=== PATIENT | male | born 1930 | race African-American/Black ===

== ENCOUNTER 2018-08-20 08:59 | Inpatient (IN) | payer MEDICARE, MEDICAID ==
[2018-08-20 09:43] LABS: #Eosinphils 0.1 thou/uL (0.0-0.7); #Lymphocytes 1.3 thou/uL (1.20-3.40); #Monocytes 0.8 thou/uL (0.11-0.59); #Neutrophils 7.4 thou/uL (1.40-6.50); %Basophils 0.3 % (0.0-1.0); %Eosinophils 0.8 % (0.0-10.0); %Lymphocytes 13.4 % (21.0-51.0); %Monocytes 8.2 % (0.0-10.0); %Neutrophils 77.3 % (42.0-75.0); Hemoglobin 9.8 g/dL (14.0-18.0); Mean Corpuscular HGB CONC 33.4 g/dL (32.0-36.0); Mean Corpuscular Hemoglobin 28.6 pg (27.0-31.0); Mean Corpuscular Volume 85.5 fL (78.0-98.0); Mean Platelet Volume 7.4 fL (7.4-10.4); Platelet Count 284 thou/uL (130-400); RBC Distribution Width 13.6 % (11.5-14.5); Red Blood Cell (RBC) Count 3.43 mill/uL (4.70-6.10); White Blood Cell (WBC) Count 9.6 thou/uL (4.8-10.8)
[2018-08-20] MEDS ORDERED: Aspirin Chewable 81 MG TAB ONE (09:45)
[2018-08-20] MEDS ORDERED: Furosemide 100 MG/10 ML VIAL ONE (09:48)
[2018-08-20 09:51] LABS: INR-International Normal Ratio 1.1; PTT 37.3 SEC (22.9-36.1); Prothrombin Time 14.5 SEC (12.0-14.7)
[2018-08-20 10:04] LABS: ALT (SGPT) 12 U/L (8-55); AST (SGOT) 25 U/L (5-34); Albumin 3.9 g/dL (3.4-4.8); Alkaline Phosphatase 146 U/L (40-150); Anion Gap 15 mmol/L (10-20); BUN (Urea Nitrogen) 12 mg/dL (8.4-25.7); Bilirubin, Total 1.1 mg/dL (0.2-1.2); Calc. Creatinine Clearance 0 mL/min (70-130); Calcium 8.2 mg/dL (7.8-10.44); Carbon Dioxide 26 mmol/L (23-31); Chloride 95 mmol/L (98-107); Estimated GFR-MDRD 63; Globulin 5.2 g/dL (2.4-3.5); Glucose 163 mg/dL (83-110); Potassium 3.9 mmol/L (3.5-5.1); Protein, Total 9.1 g/dL (5.8-8.1); Sodium 132 mmol/L (136-145)
--- NOTE | 2018-08-20 10:28 | RAD ---
PORTABLE CHEST: DATE: 08/20/18 HISTORY: Extremity swelling. History of congestive heart failure. COMPARISON: 06/08/16. FINDINGS: Heart size is enlarged. Atherosclerotic changes of aorta. Chronic appearing lung changes seen. No ove rt failure. IMPRESSION: Cardiomegaly. No signs of overt failure. POS: OFF
--- NOTE | 2018-08-20 12:31 | ULT ---
VENOUS DUPLEX SONOGRAM RIGHT UPPER EXTREMITY: Date: 08/20/18 HISTORY: Right arm pain and edema. FINDINGS: FINDINGS: The right internal jugular vein and subclavian vein, axillary, brachial, cephalic, and basilic veins were evaluated. Good color and spectral Doppler flow. No thrombus visualized. IMPRESSION: No sonographic evidence of deep venous thrombosis within the right upper extremity. POS: CET
[2018-08-20 13:55] LABS: Troponin I Less than 0.010 ng/mL (< 0.028)
[2018-08-20 14:00] VITALS: BMI 36.1
[2018-08-20] MEDS ORDERED: Senokot S 8.6-50 MG TAB PO PRN (14:56)
[2018-08-20] MEDS ORDERED: Bisacodyl 10 MG SUPP PR PRN (14:56)
[2018-08-20] MEDS ORDERED: Cepastat Lozenges 1 LOZ PO PRN (14:56)
[2018-08-20] MEDS ORDERED: Ondansetron PF 4 MG/2 ML Vial IVP PRN (14:56)
[2018-08-20] MEDS ORDERED: Sodium Chloride 0.65% Nasal 44 ML BOT EA NARE PRN (14:56)
[2018-08-20] MEDS ORDERED: Calcium Carbonate 500 MG ChewTAB PO PRN (14:56)
[2018-08-20] MEDS ORDERED: Ondansetron ODT 4 MG TAB PO PRN (14:56)
[2018-08-20] MEDS ORDERED: Dextrose 5% in Water 1,000 ML IV PRN (14:56)
[2018-08-20] MEDS ORDERED: HYDROcodone/Acetaminophen 5/325 mg Tablet PO PRN (14:56)
[2018-08-20] MEDS ORDERED: PROVENTIL INHALER 6.7 G (200 INHALATIONS) INH PRN (14:56)
[2018-08-20] MEDS ORDERED: Loperamide HCl 2 MG CAP PO PRN (14:56)
[2018-08-20] MEDS ORDERED: Dextrose 50% Abboject 50 ML SYRINGE SLOW IVP PRN (14:56)
[2018-08-20] MEDS ORDERED: Loratadine 10 MG TAB PO PRN (14:56)
[2018-08-20] MEDS ORDERED: hydrALAZINE 20 MG/ML VIAL SLOW IVP PRN (14:56)
[2018-08-20] MEDS ORDERED: Diabetic Tussin 200 MG/10 ML UDCUP PO PRN (14:56)
[2018-08-20] MEDS ORDERED: Artificial Tears 18 DROP/0.9 ML EA EYE PRN (14:56)
[2018-08-20] MEDS ORDERED: Acetaminophen 325 MG TAB PO PRN (14:56)
[2018-08-20] MEDS ORDERED: Bisacodyl 5 MG TAB PO PRN (14:56)
[2018-08-20] MEDS ORDERED: HumaLOG 300 UNITS/3 ML VIAL SC PRN ×2 (14:56)
--- NOTE | 2018-08-20 16:01 | HP ---
PRIMARY CARE PHYSICIAN: Dr. Jean Garcia. REASON FOR ADMISSION: Right upper extremity swelling, new onset atrial fibrillation. HISTORY OF PRESENT ILLNESS: An 88-year-old male, who has underlying history of diabetes, hypertension, and COPD, who presented to the emergency room with complaint of right upper extremity swelling and pain. The patient also has bilateral lower extremity pitting edema and he has shortness of breath. He was mainly concerned about his right upper extremity swelling, especially in right hand pain. He denies any chest pain, palpitation, dizziness, or syncope. He denies any constipation, diarrhea, melena, or hematochezia. The patient is not aware of any atrial fibrillation diagnosis even the patient is not aware of congestive heart failure history, but the patient is taking Lasix and he has bilateral lower extremity edema. At this point, the patient's family members are not present at bedside, unable to get more detailed history. As per emergency room physician, the patient did not report to them he had chest pain, palpitation, or previous history of stroke. He does not have any fever, chills, or UTI symptoms. Today, in the emergency room, he was hemodynamically stable, but EKG showed a new onset atrial fibrillation with controlled rate. His chest x-ray showed cardiomegaly without any CHF. His BNP was only slightly elevated. His right upper extremity ultrasound was negative for any DVT. His routine blood test showed chronic normocytic anemia and chronic kidney disease stage 3. In the emergency room, the patient has received Lasix and aspirin and subsequently, he was admitted to telemetry floor for observation. REVIEW OF SYSTEMS: CONSTITUTIONAL: Negative for weight loss or gain, ability to conduct usual activities. SKIN: Negative for rash, itching. EYES: Negative for double vision, pain. ENT/MOUTH: Negative for nose bleeding, neck stiffness, pain, tenderness. CARDIOVASCULAR: Negative for palpitations, dyspnea on exertion, orthopnea. RESPIRATORY: Negative for shortness of breath, wheezing, cough, hemoptysis, fever or night sweats. GASTROINTESTINAL: Negative for poor appetite, abdominal pain, heartburn, nausea, vomiting, constipation, or diarrhea. GENITOURINARY: Negative for urgency, frequency, dysuria, nocturia. MUSCULOSKELETAL: Negative for pain, swelling. NEUROLOGIC/PSYCHIATRIC: Negative for anxiety, depression. ALLERGY/IMMUNOLOGIC: Negative for skin rash, bleeding tendency. Please see my HPI for pertinent positives and negatives. All other review of systems reviewed and negative except as mentioned in HPI. PAST MEDICAL HISTORY: Morbid obesity, hypertension, diabetes type 2, likely chronic diastolic heart failure, dyslipidemia, gout. PAST SURGICAL HISTORY: Reviewed and negative. PAST PSYCHIATRIC HISTORY: Reviewed and negative. SOCIAL HISTORY: The patient is living at home with family. History of smoking. He quit smoking about 48 years ago. He denies any alcohol abuse. He denies any other illicit drug abuse. FAMILY HISTORY: No family history of coronary artery disease, stroke, or cancer. ALLERGIES: NO KNOWN DRUG ALLERGIES. CURRENT HOME MEDICATIONS: 1. Amlodipine 10 mg daily. 2. Zocor 20 mg p.o. at bedtime. 3. Allopurinol 100 mg daily. 4. Metformin 1000 mg p.o. b.i.d. 5. ProAir HFA 2 puffs q.6 hourly p.r.n. 6. Losartan 25 mg twice daily. 7. Potassium chloride 10 mEq daily. 8. Lasix 40 mg p.o. daily. 9. Spiriva 18 mcg inhalation daily. EMERGENCY ROOM COURSE: The patient has received Lasix 40 mg and aspirin 325 mg. PHYSICAL EXAMINATION: VITAL SIGNS: Currently, blood pressure 154/99, pulse 88 and irregular, respiratory rate 22, temperature 98.3, saturation 90% on room air, weight 122.9 kg. GENERAL: The patient is currently alert and awake. No obvious acute distress. HEENT: Head; normocephalic, atraumatic. Eyes; pupils round, reactive to light. Extraocular muscle intact. ENT; oropharynx within normal limits. Moist mucous membrane. Poor dentition. No oral lesion. No pharyngeal erythema. No exudate. NECK: Supple. No JVD. No thyromegaly. No carotid bruit. LUNGS: Bilateral few end-expiratory wheezing heard. No rales. Air entry reduced. CARDIAC: S1 and S2, irregular. No murmur elicited. No gallop. No rub. ABDOMEN: Obesity present. Bowel sounds present. Nontender. Nondistended. No organomegaly. No mass. No suprapubic tenderness. BACK: Unremarkable. No CVA tenderness. EXTREMITIES: Upper extremity; right hand swollen, mildly tender without any erythema or warmth. Pulsation intact in both upper extremities. Left upper extremity within normal limits. Lower extremity, bilateral +3 pitting edema noted. Good distal pulsation. SKIN: No skin or rash. HEMATOLOGIC: No lymphadenopathy. PSYCHIATRIC: Normal affect. NEUROLOGIC: Nonfocal examination. SIGNIFICANT LABORATORY DATA: EKG showing atrial fibrillation with controlled ventricular response, incomplete bundle branch block, left anterior fascicular block. Chest x-ray showing cardiomegaly without any pulmonary vascular congestion. CBC; WBC 9.6, hemoglobin 9.8, platelet 284. INR 1.1. BMP; sodium 132, potassium 3.9, chloride 95, carbon dioxide 26, BUN 12, creatinine 1.31, anion gap 15, glucose 163, uric acid 6.9, calcium 8.2. LFT; AST 25, ALT 12, alkaline phosphatase 146, albumin 3.9. Troponin I 0.020 and 0.010. BNP 105.5. TSH 2.72. Ultrasound of the right upper extremity negative for any DVT. ASSESSMENT AND PLAN: 1. New onset atrial fibrillation, rate controlled. At this point, seems like the patient has new onset atrial fibrillation based on history. The patient has several risk factors for stroke including his age, congestive heart failure, diabetes, and hypertension. He is at high risk for future stroke. At this point, the patient will need chronic anticoagulation. We will start Eliquis 5 mg p.o. b.i.d. We will consult Cardiology. We will obtain echocardiography. At this point, the patient's rate is under control. We will put Cardizem CD 120 mg p.o. daily. Further treatment decision will defer to Cardiology. 2. Acute on chronic diastolic congestive heart failure. This patient has elevated BNP, bilateral lower extremity edema, and mild hypoxia. At this point, the patient will need diuretic therapy. We will start with Lasix 40 mg IV b.i.d., fluid restriction 1500 mL per day. We will monitor renal function and replace electrolytes accordingly. We will obtain echocardiography. 3. Chronic obstructive pulmonary disease with possible mild flare-up. We will continue with DuoNeb q.6 hourly p.r.n., Spiriva 18 mcg inhalation daily. 4. Anemia, normocytic normochromic. We will continue with ferrous sulfate 325 mg p.o. daily. 5. Chronic kidney disease stage 3. We will monitor renal function. 6. Diabetes type 2. We will continue with metformin 1000 mg twice daily. Diabetic diet will be given. 7. Dyslipidemia, on Lipitor. We will continue Zocor 20 mg p.o. at bedtime. 8. Gout. We will continue allopurinol 100 mg p.o. daily. 9. Isolated right upper extremity swelling, suspecting a gout. We will check CRP and we will continue with colchicine 0.6 mg p.o. b.i.d. 10. Obesity with BMI 36. Dietary education given. Weight loss education given. 11. Hypertension. We will discontinue amlodipine and will continue losartan 25 mg p.o. b.i.d. 12. DVT prophylaxis. The patient is already kept on Eliquis therapy. 13. GI prophylaxis. Pepcid 20 mg p.o. b.i.d. CODE STATUS: The patient is full code. The patient's daughter is surrogate decision maker. DISPOSITION PLAN: Based on clinical course and Cardiology recommendation, the plan of care discussed with the patient in detail. We will repeat labs tomorrow. Job ID: [id number]
[2018-08-20 16:07] LABS: Troponin I 0.015 ng/mL (< 0.028)
[2018-08-20] MEDS ORDERED: Albuterol Sulfate 2.5 mg/3 ml Neb NEB PRN (17:19)
[2018-08-20 17:46] LABS: Bilirubin Negative (Negative); Blood, Urine Trace (Negative); Clarity CLEAR (Clear); Glucose, Urine (Dipstick) Negative (Negative); Leukocyte Trace (Negative); Nitrite Negative (Negative); Protein, Urine (Dipstick) Trace mg/dL (Neg-Trace); Specific Gravity, Urine 1.007 (1.002-1.036); pH, Urine 7.5 (5.0-9.0)
[2018-08-20 17:50] LABS: Bacteria/HPF None Seen HPF (None Seen); Hyaline Casts/LPF 0-3 HYALINE CAST LPF (0-3 Hyaline); RBC/HPF 0-3 HPF (0-3); Squamous Epithelial 0-3 HPF (0-3); WBC/HPF 0-3 HPF (0-3)
[2018-08-20] MEDS: metFORMIN 500 MG TAB PO SCH (18:09)
[2018-08-20] MEDS: Ipratropium Bromide 2.5 ml Neb NEB SCH (19:02)
--- NOTE | 2018-08-20 20:29 | CON ---
DATE OF CONSULTATION: 08/20/2018 REASON FOR CONSULTATION: Arrhythmia. HISTORY OF PRESENT ILLNESS: Mr. Murray is a pleasant 88-year-old gentleman, who comes to the hospital for right arm pain. He noticed right arm pain and swelling developed to the point where he thought he needed help with this. He came into the ER and was evaluated. Initially, he was found to have an irregular rhythm that was thought to be atrial fibrillation, so he was admitted for atrial fibrillation with RVR. He had a venous ultrasound of the right arm that showed no evidence of deep venous thrombosis in the right upper extremity. He has a lot of pain in the arm. He cannot move it that much. It is swollen and it is very painful to touch as well. It is warm to touch as well. He denies any chest pain, tightness, or pressure. No shortness of breath. He has never been told he has any rhythm problems. PAST MEDICAL HISTORY: 1. Type 2 diabetes. 2. Hypertension. 3. History of diastolic heart failure. 4. Hyperlipidemia. 5. Gout. 6. Morbid obesity. PAST SURGICAL HISTORY: None. SOCIAL HISTORY: Quit smoking 48 years ago. No alcohol. No drug use. FAMILY HISTORY: No early coronary artery disease. OUTPATIENT MEDICATIONS: 1. Amlodipine 10 mg a day. 2. Zocor 20 mg a day. 3. Allopurinol. 4. Metformin 1000 mg b.i.d. 5. ProAir. 6. Losartan 25 mg twice a day. 7. Potassium chloride 10 mEq a day. 8. Lasix 40 mg a day. 9. Spiriva 18 mcg a day. ALLERGIES: NO KNOWN DRUG ALLERGIES. REVIEW OF SYSTEMS: A 12-point review of systems was done and was all negative unless stated in the history of present illness. PHYSICAL EXAMINATION: VITAL SIGNS: Temperature 97.3, pulse 78, respiratory rate 20, saturating 92% on room air, blood pressure 139/82. GENERAL: Awake, alert, and oriented x3. No distress. HEENT: Normocephalic, atraumatic. NECK: Supple. LUNGS: Clear. CARDIOVASCULAR: Irregularly irregular. Heart rate in the 80s. There is a grade 2/6 systolic murmur at the right upper sternal border. ABDOMEN: Soft. EXTREMITIES: No edema in the legs. Right arm is edematous, swollen, painful, and warm to palpation. LABORATORY DATA: Laboratory work was reviewed. CBC with a white count of 9, hemoglobin 9.8, hematocrit 29, platelet count 284. Coags; INR 1.1. Chemistry with a sodium of 132, potassium is 3.9, chloride of 95, carbon dioxide of 26, anion gap of 15, BUN of 12, creatinine 1.31, GFR of 63, glucose of 163. Troponin negative x2. BNP is 105. Albumin of 3.9. TSH was normal. UA with trace blood and trace leukocyte esterase. EKG was reviewed. The EKG called it atrial fibrillation, however, he is not in atrial fibrillation. It looks like he is in multifocal atrial tachycardia or he is in sinus rhythm with small runs of atrial tachycardia. ASSESSMENT: 1. Multifocal atrial tachycardia versus small runs of atrial tachycardia, nonsustained. 2. Right upper extremity swelling. Concern for a gouty attack. He does not have a deep venous thrombosis and if he would have thrown thrombus to his arm, he would have no pulses and he does have good pulses. PLAN: 1. We will do an echocardiogram. 2. Repeat EKG tonight and one in the morning. 3. No need for full anticoagulation at this time given that this is not atrial fibrillation. 4. We will get an EP consultation. 5. Would focus on his right upper extremity pain. Job ID: [id number]
[2018-08-20] MEDS ORDERED: Prevnar 13-Val Conj/PF 0.5 ML SYRINGE IM ONE (20:30)
[2018-08-20] MEDS ORDERED: Apixaban 2.5 MG TAB PO SCH (21:00)
[2018-08-20] MEDS ORDERED: Apixaban 5 MG TAB PO SCH (21:00)
[2018-08-20] MEDS: Losartan 25 MG TAB PO SCH (21:46)
[2018-08-20] MEDS: Famotidine 20 MG TAB PO SCH (21:47)
[2018-08-20] MEDS: Atorvastatin Calcium 10 MG TAB PO SCH (21:47)
[2018-08-20] MEDS: Colchicine 0.6 MG TAB PO SCH (22:02)
[2018-08-21] MEDS: Ipratropium Bromide 2.5 ml Neb NEB SCH ×4 (00:41→19:30)
[2018-08-21 07:17] LABS: Anion Gap 17 mmol/L (10-20); BUN (Urea Nitrogen) 16 mg/dL (8.4-25.7); Calc. Creatinine Clearance 56 mL/min (70-130); Calcium 8.6 mg/dL (7.8-10.44); Carbon Dioxide 26 mmol/L (23-31); Chloride 95 mmol/L (98-107); Estimated GFR-MDRD 49; Glucose 181 mg/dL (83-110); Potassium 3.7 mmol/L (3.5-5.1); Sodium 134 mmol/L (136-145)
[2018-08-21 07:28] LABS: Hemoglobin 10.8 g/dL (14.0-18.0); MDiff Complete? YES; Mean Corpuscular HGB CONC 33.3 g/dL (32.0-36.0); Mean Corpuscular Hemoglobin 28.5 pg (27.0-31.0); Mean Corpuscular Volume 85.5 fL (78.0-98.0); Mean Platelet Volume 7.1 fL (7.4-10.4); Platelet Count 316 thou/uL (130-400); RBC Distribution Width 13.5 % (11.5-14.5); Red Blood Cell (RBC) Count 3.79 mill/uL (4.70-6.10); White Blood Cell (WBC) Count 12.3 thou/uL (4.8-10.8)
[2018-08-21 07:29] LABS: Lymphocytes 11 % (21-51); Monocytes 6 % (0-10); Neutrophil 83 % (42-75); Polychromasia SLIGHT = 2-3 cells (100X) (0-2/hpf)
[2018-08-21] MEDS ORDERED: Amlodipine 10 MG TAB PO SCH (09:00)
[2018-08-21] MEDS ORDERED: Furosemide 40 MG TAB PO SCH (09:00)
[2018-08-21] MEDS ORDERED: Spiriva 18 MCG CAP (Box of 5 Caps) INH SCH ×2 (09:00)
[2018-08-21] MEDS: Furosemide 40 MG/4 ML VIAL SLOW IVP SCH ×2 (09:14→14:35)
[2018-08-21] MEDS: Allopurinol 100 MG TAB PO SCH (09:14)
[2018-08-21] MEDS: Potassium Chloride 10 MEQ TAB PO SCH (09:14)
[2018-08-21] MEDS: Losartan 25 MG TAB PO SCH ×2 (09:14→20:02)
[2018-08-21] MEDS: Ferrous Sulfate 325 MG TAB PO SCH (09:14)
[2018-08-21] MEDS: metFORMIN 500 MG TAB PO SCH ×2 (09:15→17:51)
[2018-08-21] MEDS: Colchicine 0.6 MG TAB PO SCH ×2 (10:10→20:02)
--- NOTE | 2018-08-21 11:23 | PDOC.PN ---
- Subjective Encounter Start Date: 08/21/18 Encounter Start Time: 07:10 -: old records requested/rev pt is very weak, he has edema leg and edema right hand, he has pain in right hand, he is wheezing, no fever - Objective Resuscitation Status - Order Detail: 08/20/18 14:52 Resuscitation Status Routine Resuscitation Status: FULL: Full Resuscitation MAR Reviewed: Yes Vital Signs & Weight: Vital Signs (12 hours) Temp Pulse Resp BP BP BP Pulse Ox 08/21/18 09:14 108 H 133/74 08/21/18 07:43 97.2 F L 108 H 20 133/74 92 L 08/21/18 06:34 74 16 90 L 08/21/18 04:00 124 H 20 147/77 H 08/20/18 23:26 98.3 F 104 H 24 H 173/77 H 173/77 H 100 Weight Weight 266 lb 11.2 oz I&O: 08/20/18 08/21/18 08/22/18 06:59 06:59 06:59 Intake Total 124 Output Total 755 50 Balance -755 74 Result Diagrams: 08/21/18 06:41 08/21/18 06:41 Additional Labs: Accuchecks 08/21/18 08/20/18 08/20/18 06:16 20:48 16:40 POC Glucose 189 H 185 H 166 H EKG Reviewed by me: Yes (MAT) Phys Exam - Physical Examination Constitutional: NAD HEENT: PERRLA, moist MMs, sclera anicteric Neck: supple, full ROM Respiratory: wheezing present few basal rales Cardiovascular: no significant murmur, irregular Gastrointestinal: soft, non-tender, no distention, positive bowel sounds obesity+ Musculoskeletal: pulses present, edema present Neurological: non-focal, normal sensation Lymphatic: no nodes Psychiatric: normal affect, A&O x 3 Skin: no rash, normal turgor Dx/Plan (1) 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 Code(s): I50.33 - ACUTE ON CHRONIC DIASTOLIC (CONGESTIVE) HEART FAILURE Status : Acute (2) Multifocal atrial tachycardia Code(s): I47.1 - SUPRAVENTRICULAR TACHYCARDIA Status: Acute Comment: vs afib (3) Swelling of right hand Code(s): M79.89 - OTHER SPECIFIED SOFT TISSUE DISORDERS Status: Acute Comment: likely due to gout (4) Anemia, normocytic normochromic Code(s): D64.9 - ANEMIA, UNSPECIFIED Status: Chronic (5) CKD (chronic kidney disease) stage 3, GFR 30-59 ml/min Code(s): N18.3 - CHRONIC KIDNEY DISEASE, STAGE 3 (MODERATE) Status: Chronic (6) COPD (chronic obstructive pulmonary disease) Status: Chronic (7) Diabetes type 2, controlled Code(s): E11.9 - TYPE 2 DIABETES MELLITUS WITHOUT COMPLICATIONS Status: Chronic (8) Dyslipidemia Code(s): E78.5 - HYPERLIPIDEMIA, UNSPECIFIED Status: Chronic (9) Gout Code(s): M10.9 - GOUT, UNSPECIFIED Status: Chronic (10) Hypertension Code(s): I10 - ESSENTIAL (PRIMARY) HYPERTENSION Status: Chronic (11) Obesity (BMI 30-39.9) Code(s): E66.9 - OBESITY, UNSPECIFIED Status: Chronic - Plan cont current plan of care, plan discussed w/ family, continue antibiotics, PT/OT , social work nurse, respiratory therapy * continue IV lasix for CHF * echo pending * as per cardiology, EP consulted * will DC elliquis for now as per cardio recommendation * I spoke with son and updated plan * will start PT/OT * he will need SNU evaluation * medication reviewed as below * symptomatic treatment * will repeat labs tomorrow. * change to inpt status Review of Systems - Review of Systems Constitutional: weakness. negative: fever, chills, sweats, malaise, other Respiratory: Shortness of Breath, SOB with Excertion, Wheezing. negative: Cough , Dry, Hemoptysis, Pleuritic Pain, Sputum Cardiovascular: edema. negative: chest pain, palpitations, orthopnea, paroxysmal nocturnal dyspnea, light headedness, other Gastrointestinal: negative: Nausea, Vomiting, Abdominal Pain, Diarrhea, Constipation, Melena, Hematochezia, Other Genitourinary: negative: Dysuria, Frequency, Incontinence, Hematuria, Retention , Other Musculoskeletal: Hand Pain. negative: Neck Pain, Shoulder Pain, Arm Pain, Back Pain, Leg Pain, Foot Pain, Other Skin: negative: Rash, Lesions, Jarvis, Bruising, Other - Medications/Allergies Allergies/Adverse Reactions: Allergies Allergy/AdvReac Type Severity Reaction Status Date / Time No Known Allergies Allergy Unverified 08/20/18 14:44 Medications: Current Medications Acetaminophen (Tylenol) 650 mg PO Q4H PRN PRN Reason: Headache/Fever/Mild Pain (1-3) Hydrocodone Bitart/Acetaminophen (Cabool 5/325) 1 tab PO Q4H PRN PRN Reason: Moderate Pain (4-6) Albuterol Sulfate (Proventil Hfa) 2 puff INH Q6H PRN PRN Reason: SOB &/or Wheezing Albuterol Sulfate (Ventolin) 2.5 mg NEB Q6H PRN PRN Reason: Dyspnea/Wheezing/SOB Allopurinol (Zyloprim) 100 mg PO DAILY [facility] Last Admin: 08/21/18 09:14 Dose: 100 mg Artificial Tears (Tears Naturale) 2 drop EA EYE PRN PRN PRN Reason: Dry Eyes Atorvastatin Calcium (Lipitor) 10 mg PO HS [facility] Last Admin: 08/20/18 21:47 Dose: 10 mg Bisacodyl (Dulcolax) 10 mg PO DAILYPRN PRN PRN Reason: Constipation Bisacodyl (Dulcolax) 10 mg KS DAILYPRN PRN PRN Reason: Constipation Calcium Carbonate (Tums) 1,000 mg PO Q4H PRN PRN Reason: Heartburn or Indigestion Colchicine (Colchicine) 0.6 mg PO BID [facility] Last Admin: 08/21/18 10:10 Dose: 0.6 mg Dextrose/Water (Dextrose 50%) 25 gm SLOW IVP PRN PRN PRN Reason: Hypoglycemia Diltiazem HCl (Cardizem Cd) 120 mg PO DAILY [facility] Last Admin: 08/21/18 09:14 Dose: 120 mg Famotidine (Pepcid) 20 mg PO 2100 [facility] Last Admin: 08/20/18 21:47 Dose: 20 mg Ferrous Sulfate (Feosol) 325 mg PO QAM-WM [facility] Last Admin: 08/21/18 09:14 Dose: 325 mg Furosemide (Lasix) 40 mg SLOW IVP 0600,1400 [facility] Last Admin: 08/21/18 09:14 Dose: 40 mg Glucagon (Glucagon) 1 mg IM PRN PRN PRN Reason: Hypoglycemia Guaifenesin (Robitussin Sf) 200 mg PO Q4H PRN PRN Reason: Cough Last Admin: 08/20/18 18:09 Dose: 200 mg Hydralazine HCl (Apresoline) 10 mg SLOW IVP Q4H PRN PRN Reason: SBP > 180 and HR < 70 Dextrose/Water (D5w) 1,000 mls @ 0 mls/hr IV .Q0M PRN PRN Reason: Hypoglycemia Insulin Human Lispro (Humalog) 0 units SC .MODERATE SLIDING SC PRN PRN Reason: Moderate Correctional Scale Insulin Human Lispro (Humalog) 0 units SC .BEDTIME SLIDING SC PRN PRN Reason: Bedtime Correctional Scale Ipratropium [place] (Atrovent) 2.5 ml NEB [id number] [facility] Last Admin: 08/21/18 06:34 Dose: 2.5 ml Loperamide HCl (Imodium) 2 mg PO PRN PRN PRN Reason: Diarrhea/Loose Stools Loratadine (Claritin) 10 mg PO DAILYPRN PRN PRN Reason: Sinus Symptoms Losartan Potassium (Cozaar) 25 mg PO BID [facility] Last Admin: 08/21/18 09:14 Dose: 25 mg Metformin HCl (Glucophage) 1,000 mg PO BID-[facility] Last Admin: 08/21/18 09:15 Dose: 1,000 mg Ondansetron HCl (Zofran Odt) 4 mg PO Q6H PRN PRN Reason: Nausea/Vomiting Ondansetron HCl (Zofran) 4 mg IVP Q6H PRN PRN Reason: Nausea/Vomiting Potassium Chloride (Klor-Con 10) 10 meq PO QAM-[facility] Last Admin: 08/21/18 09:14 Dose: 10 meq Senna/Docusate Sodium (Senokot S) 2 tab PO BID PRN PRN Reason: Constipation Sodium Chloride ([place] Nasal [place] 0.65%) 0 ml EA NARE QIDPRN PRN PRN Reason: Nasal Congestion Throat Lozenges (Cepastat Lozenges) 1 malcolm PO Q2H PRN PRN Reason: Sore Throat Zolpidem Tartrate (Ambien) 5 mg PO HSPRN PRN PRN Reason: Insomnia
--- NOTE | 2018-08-21 19:18 | PDOC.CTH ---
Cardiology Progress Note - Subjective No new issues. No syncope. - Objective Vital Signs Temp Pulse Resp BP BP BP Pulse Ox 08/21/18 15:15 97.5 F L 110 H 18 120/69 92 L 08/21/18 12:43 107 H 16 90 L 08/21/18 11:30 98.2 F 63 20 136/67 89 L 08/21/18 11:20 89 L 08/21/18 09:14 108 H 133/74 08/21/18 07:43 97.2 F L 108 H 20 133/74 92 L Weight 266 lb 11.2 oz 08/20/18 08/21/18 08/22/18 06:59 06:59 06:59 Intake Total 364 Output Total 755 450 Balance -755 -86 - Physical Examination General/Neuro: alert & oriented x3, NAD Neck: no JVD present Lungs: CTA, unlabored respirations Heart: RRR Abdomen: NT/ND Extremities: + edema B (1+) - Telemetry Telemetry Rhythm: Atrial tach - Labs Result Diagrams: 08/21/18 06:41 08/21/18 06:41 Troponin/CKMB Troponin I 0.015 ng/mL (< 0.028) 08/20/18 15:36 - Assessment/Plan 1. Acute gouty attack. 2. Atrial tachycardia, MAT vs A tach. I do not think this is afib. Will await EP recs. 3. COPD 4. CKD stage 3. 5 Type 2 DM. PLAN: - EP consultation - Right hand symptoms improved with colchicine. - Will follow.
[2018-08-21] MEDS: Famotidine 20 MG TAB PO SCH (20:01)
[2018-08-21] MEDS: Atorvastatin Calcium 10 MG TAB PO SCH (20:02)
[2018-08-22] MEDS: Ipratropium Bromide 2.5 ml Neb NEB SCH ×4 (00:22→19:43)
[2018-08-22 05:59] LABS: #Eosinphils 0.2 thou/uL (0.0-0.7); #Lymphocytes 1.5 thou/uL (1.20-3.40); #Monocytes 0.8 thou/uL (0.11-0.59); #Neutrophils 8.6 thou/uL (1.40-6.50); %Basophils 0.2 % (0.0-1.0); %Eosinophils 1.4 % (0.0-10.0); %Lymphocytes 13.7 % (21.0-51.0); %Monocytes 7.2 % (0.0-10.0); %Neutrophils 77.5 % (42.0-75.0); Hemoglobin 10.5 g/dL (14.0-18.0); Mean Corpuscular HGB CONC 31.7 g/dL (32.0-36.0); Mean Corpuscular Hemoglobin 27.6 pg (27.0-31.0); Platelet Count 323 thou/uL (130-400); RBC Distribution Width 13.6 % (11.5-14.5); White Blood Cell (WBC) Count 11.1 thou/uL (4.8-10.8)
[2018-08-22 06:21] LABS: Anion Gap 15 mmol/L (10-20); BUN (Urea Nitrogen) 25 mg/dL (8.4-25.7); Calc. Creatinine Clearance 58 mL/min (70-130); Calcium 8.7 mg/dL (7.8-10.44); Carbon Dioxide 27 mmol/L (23-31); Chloride 97 mmol/L (98-107); Estimated GFR-MDRD 51; Glucose 115 mg/dL (83-110); Magnesium 1.6 mg/dL (1.6-2.6); Potassium 3.7 mmol/L (3.5-5.1); Sodium 135 mmol/L (136-145)
[2018-08-22] MEDS: Ferrous Sulfate 325 MG TAB PO SCH (09:03)
[2018-08-22] MEDS: Potassium Chloride 10 MEQ TAB PO SCH (09:04)
[2018-08-22] MEDS: Allopurinol 100 MG TAB PO SCH (09:04)
[2018-08-22] MEDS: metFORMIN 500 MG TAB PO SCH ×2 (09:04→17:40)
[2018-08-22] MEDS: Colchicine 0.6 MG TAB PO SCH ×2 (09:04→20:04)
[2018-08-22] MEDS: Losartan 25 MG TAB PO SCH ×2 (09:05→20:04)
--- NOTE | 2018-08-22 10:55 | PDOC.PN ---
- Subjective Encounter Start Date: 08/22/18 Encounter Start Time: 10:00 Patient seen and examined. No new complaints. No overnight events - Objective Resuscitation Status - Order Detail: 08/20/18 14:52 Resuscitation Status Routine Resuscitation Status: FULL: Full Resuscitation MAR Reviewed: Yes Vital Signs & Weight: Vital Signs (12 hours) Temp Pulse Resp BP BP Pulse Ox 08/22/18 09:04 110 H 08/22/18 08:07 97.7 F 107 H 18 169/75 H 98 08/22/18 07:13 76 20 88 L 08/22/18 04:00 98.1 F 90 18 134/61 94 L 08/22/18 00:22 90 18 90 L Weight Weight 266 lb 11.2 oz I&O: 08/21/18 08/22/18 08/23/18 06:59 06:59 06:59 Intake Total 364 Output Total 755 450 Balance -755 -86 Result Diagrams: 08/22/18 05:30 08/22/18 05:30 Additional Labs: Accuchecks 08/22/18 08/21/18 08/21/18 05:14 20:30 17:21 POC Glucose 112 H 168 H 142 H 08/21/18 12:14 POC Glucose 181 H EKG Reviewed by me: Yes (atrial flutter) Phys Exam - Physical Examination Constitutional: NAD HEENT: PERRLA, moist MMs, sclera anicteric Neck: no JVD, supple Respiratory: no rales, wheezing present Cardiovascular: no significant murmur, irregular Gastrointestinal: soft, non-tender, no distention, positive bowel sounds Musculoskeletal: edema present Neurological: non-focal, normal sensation Lymphatic: no nodes Psychiatric: normal affect Skin: no rash, normal turgor Dx/Plan (1) 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 Code(s): I50.33 - ACUTE ON CHRONIC DIASTOLIC (CONGESTIVE) HEART FAILURE Status : Acute (2) Multifocal atrial tachycardia Code(s): I47.1 - SUPRAVENTRICULAR TACHYCARDIA Status: Acute Comment: vs afib (3) Swelling of right hand Code(s): M79.89 - OTHER SPECIFIED SOFT TISSUE DISORDERS Status: Acute Comment: likely due to gout (4) Anemia, normocytic normochromic Code(s): D64.9 - ANEMIA, UNSPECIFIED Status: Chronic (5) CKD (chronic kidney disease) stage 3, GFR 30-59 ml/min Code(s): N18.3 - CHRONIC KIDNEY DISEASE, STAGE 3 (MODERATE) Status: Chronic (6) COPD (chronic obstructive pulmonary disease) Status: Chronic (7) Diabetes type 2, controlled Code(s): E11.9 - TYPE 2 DIABETES MELLITUS WITHOUT COMPLICATIONS Status: Chronic (8) Dyslipidemia Code(s): E78.5 - HYPERLIPIDEMIA, UNSPECIFIED Status: Chronic (9) Gout Code(s): M10.9 - GOUT, UNSPECIFIED Status: Chronic (10) Hypertension Code(s): I10 - ESSENTIAL (PRIMARY) HYPERTENSION Status: Chronic (11) Obesity (BMI 30-39.9) Code(s): E66.9 - OBESITY, UNSPECIFIED Status: Chronic (12) New onset atrial flutter Code(s): I48.92 - UNSPECIFIED ATRIAL FLUTTER Status: Acute - Plan cont current plan of care, continue antibiotics, PT/OT, social research assistant, respiratory therapy * today ? EP study * will evaluated for SNU * medication reviewed as below * symptomatic treatment * continue diuresis. * agree with lovenox * monitor on tele * cardiology following Review of Systems - Review of Systems ENT: negative: Ear Pain, Ear Discharge, Nose Pain, Nose Discharge, Nose Congestion, Mouth Pain, Mouth Swelling, Throat Pain, Throat Swelling, Other Respiratory: negative: Cough, Dry, Shortness of Breath, Hemoptysis, SOB with Excertion, Pleuritic Pain, Sputum, Wheezing Cardiovascular: negative: chest pain, palpitations, orthopnea, paroxysmal nocturnal dyspnea, edema, light headedness, other Gastrointestinal: negative: Nausea, Vomiting, Abdominal Pain, Diarrhea, Constipation, Melena, Hematochezia, Other Genitourinary: negative: Dysuria, Frequency, Incontinence, Hematuria, Retention , Other Musculoskeletal: negative: Neck Pain, Shoulder Pain, Arm Pain, Back Pain, Hand Pain, Leg Pain, Foot Pain, Other - Medications/Allergies Allergies/Adverse Reactions: Allergies Allergy/AdvReac Type Severity Reaction Status Date / Time No Known Allergies Allergy Unverified 08/20/18 14:44 Medications: Current Medications Acetaminophen (Tylenol) 650 mg PO Q4H PRN PRN Reason: Headache/Fever/Mild Pain (1-3) Hydrocodone Bitart/Acetaminophen ([place] 5/325) 1 tab PO Q4H PRN PRN Reason: Moderate Pain (4-6) Albuterol Sulfate (Proventil Hfa) 2 puff INH Q6H PRN PRN Reason: SOB &/or Wheezing Albuterol Sulfate (Ventolin) 2.5 mg NEB Q6H PRN PRN Reason: Dyspnea/Wheezing/SOB Allopurinol (Zyloprim) 100 mg PO DAILY [facility] Last Admin: 08/22/18 09:04 Dose: 100 mg Artificial Tears (Tears Naturale) 2 drop EA EYE PRN PRN PRN Reason: Dry Eyes Atorvastatin Calcium (Lipitor) 10 mg PO HS [facility] Last Admin: 08/21/18 20:02 Dose: 10 mg Bisacodyl (Dulcolax) 10 mg PO DAILYPRN PRN PRN Reason: Constipation Bisacodyl (Dulcolax) 10 mg IA DAILYPRN PRN PRN Reason: Constipation Calcium Carbonate (Tums) 1,000 mg PO Q4H PRN PRN Reason: Heartburn or Indigestion Colchicine (Colchicine) 0.6 mg PO BID [facility] Last Admin: 08/22/18 09:04 Dose: 0.6 mg Dextrose/Water (Dextrose 50%) 25 gm SLOW IVP PRN PRN PRN Reason: Hypoglycemia Diltiazem HCl (Cardizem Cd) 120 mg PO DAILY [facility] Last Admin: 08/22/18 09:04 Dose: 120 mg Famotidine (Pepcid) 20 mg PO 2100 [facility] Last Admin: 08/21/18 20:01 Dose: 20 mg Ferrous Sulfate (Feosol) 325 mg PO QA-[facility] Last Admin: 08/22/18 09:03 Dose: 325 mg Glucagon (Glucagon) 1 mg IM PRN PRN PRN Reason: Hypoglycemia Guaifenesin (Robitussin Sf) 200 mg PO Q4H PRN PRN Reason: Cough Last Admin: 08/20/18 18:09 Dose: 200 mg Hydralazine HCl (Apresoline) 10 mg SLOW IVP Q4H PRN PRN Reason: SBP > 180 and HR < 70 Dextrose/Water (D5w) 1,000 mls @ 0 mls/hr IV .Q0M PRN PRN Reason: Hypoglycemia Insulin Human Lispro (Humalog) 0 units SC .MODERATE SLIDING SC PRN PRN Reason: Moderate Correctional Scale Insulin Human Lispro (Humalog) 0 units SC .BEDTIME SLIDING SC PRN PRN Reason: Bedtime Correctional Scale Ipratropium [place] (Atrovent) 2.5 ml NEB [id number] [facility] Last Admin: 08/22/18 07:13 Dose: 2.5 ml Loperamide HCl (Imodium) 2 mg PO PRN PRN PRN Reason: Diarrhea/Loose Stools Loratadine (Claritin) 10 mg PO DAILYPRN PRN PRN Reason: Sinus Symptoms Losartan Potassium (Cozaar) 25 mg PO BID [facility] Last Admin: 08/22/18 09:05 Dose: 25 mg Metformin HCl (Glucophage) 1,000 mg PO BID-[facility] Last Admin: 08/22/18 09:04 Dose: Not Given Ondansetron HCl (Zofran Odt) 4 mg PO Q6H PRN PRN Reason: Nausea/Vomiting Ondansetron HCl (Zofran) 4 mg IVP Q6H PRN PRN Reason: Nausea/Vomiting Potassium Chloride (Klor-Con 10) 10 meq PO QAM-[facility] Last Admin: 08/22/18 09:04 Dose: 10 meq Senna/Docusate Sodium (Senokot S) 2 tab PO BID PRN PRN Reason: Constipation Sodium Chloride ([place] Nasal [place] 0.65%) 0 ml EA NARE QIDPRN PRN PRN Reason: Nasal Congestion Throat Lozenges (Cepastat Lozenges) 1 malcolm PO Q2H PRN PRN Reason: Sore Throat Zolpidem Tartrate (Ambien) 5 mg PO HSPRN PRN PRN Reason: Insomnia
--- NOTE | 2018-08-22 13:44 | CON ---
DATE OF CONSULTATION: 08/22/2018 REASON FOR CONSULTATION: Atrial tachycardia. This consultation was performed by Dr. Paul Scott. HISTORY OF PRESENT ILLNESS: Mr. Murray is a pleasant 88-year-old gentleman, who presented to [place] [facility] with right arm pain. He was evaluated for a DVT, which is negative, and this was thought to be possibly a gout attack. Additional monitoring since he was hospitalized shows tachycardia issue, which was initially thought to be atrial fibrillation, but EKG interpretation shows atrial tachycardia. He has no history of this. He is not aware of any heart racings, palpitations, associated chest pain or pressure. He does not have any shortness of breath or fluid retention issues. He denies any syncope or near syncopal episodes. He denies any prior knowledge of arrhythmia issues. REVIEW OF SYSTEMS: A 12-point review of systems was conducted and is negative except that listed above in the HPI. PAST MEDICAL HISTORY: 1. Type 2 diabetes. 2. Hypertension. 3. Diastolic heart failure. 4. Hyperlipidemia. 5. Gout. 6. Morbid obesity. PAST SURGICAL HISTORY: None. SOCIAL HISTORY: Negative for tobacco, alcohol, or illicit drug use. Quit smoking 48 years ago. FAMILY HISTORY: Negative for early onset coronary artery disease or sudden cardiac . ALLERGIES: NO KNOWN DRUG ALLERGIES. HOME MEDICATIONS: 1. Spiriva daily. 2. Albuterol q.6 hours. 3. Metformin b.i.d. 4. Potassium chloride daily. 5. Simvastatin at bedtime. 6. Losartan b.i.d. 7. Furosemide 40 mg daily. 8. Allopurinol daily. 9. Ferrous sulfate daily. 10. Diltiazem 120 mg p.o. daily. PHYSICAL EXAMINATION: VITAL SIGNS: Temperature 97.4, pulse 110, blood pressure 128/59, respirations 16, oxygen is 94% on room air. GENERAL: The patient is alert and oriented. He is a poor to fair historian. He is in on apparent distress. Resting comfortably in the chair during exam. HEENT: He is normocephalic and atraumatic. His sclerae are anicteric. Oral mucosa is moist and pink with extremely poor dentition. NECK: Supple without jugular venous distention. LUNGS: Clear to auscultation. HEART: Rate is irregular and slightly tachycardic. PMI is nondisplaced. ABDOMEN: Obese, soft, and nontender without palpable masses. EXTREMITIES: Warm and dry to touch without clubbing, cyanosis, or edema. NEUROLOGIC: Nonfocal. Gait was not assessed. LABORATORY DATA: WBC 11.1, hemoglobin 10.5, hematocrit 33, platelet count is 323. Potassium 3.7, creatinine 1.57, magnesium 1.6. AST and ALT within normal limits. TSH is 2.72. Telemetry and EKGs reveal atrial tachycardia with ventricular rate between 80 and 120 beats per minute. IMPRESSION: 1. Atrial tachycardia with occasional rapid ventricular response, but largely rate controlled between 80 and 120 beats per minute with calcium channel eitan therapy alone. 2. Right upper extremity pain. RECOMMENDATIONS: After reviewing Mr. Murray's EKGs and telemetry, I agree that this is an atrial tachycardia issue and that no true atrial fibrillation or atrial flutter is seen. Without CA, there is no need for full anticoagulation at this time for atrial arrhythmias and stroke prophylaxis. Ultimately, my recommendation is for arrhythmia suppression with medical management. Echocardiogram is pending, that is ordered, but has not been performed at this time. No history of coronary artery disease is found upon chart review, although he does have numerous risk factors for coronary artery disease, and the chest x-ray had shown some atherosclerotic disease of the aorta. I had considered Multaq, sotalol, and flecainide as antiarrhythmic options for him, but with his likely CAD, I would refrain from flecainide until coronary artery disease status is known. Multaq is likely financially not going to be an option for him, so I have ordered sotalol to be started, 80 mg p.o. b.i.d. I recommend close monitoring of his QTc, and EKGs have been ordered through the weekend following his sotalol doses, in which Cardiology will help us monitor. If he does not tolerate this medication or QTc prolongation is seen, we could consider Multaq if he is able to afford this medication. If recurrence is seen in spite of antiarrhythmic therapy, I would consider ablative therapy for him in the future as an outpatient. Thank you for allowing me to participate in the care of this patient. Job ID: [id number]
--- NOTE | 2018-08-22 16:42 | PDOC.CTH ---
Cardiology Progress Note - Subjective He is doing well. He was started don Sotalol and he converted to atrial flutter. - Objective Vital Signs Temp Pulse Pulse Resp BP BP BP 08/22/18 16:23 97.4 F L 70 16 122/58 L 08/22/18 13:21 98 20 08/22/18 11:55 97.4 F L 112 H 16 128/56 L 08/22/18 11:35 98 124/70 08/22/18 09:04 110 H 08/22/18 08:07 97.7 F 107 H 18 169/75 H 08/22/18 07:13 76 20 Pulse Ox Pulse Ox 08/22/18 16:23 94 L 08/22/18 13:21 90 L 08/22/18 11:55 94 L 08/22/18 11:35 96 08/22/18 09:04 08/22/18 08:07 98 08/22/18 07:13 88 L Weight 266 lb 11.2 oz 08/21/18 08/22/18 08/23/18 06:59 06:59 06:59 Intake Total 364 Output Total 755 450 Balance -755 -86 - Physical Examination General/Neuro: alert & oriented x3, NAD Neck: no JVD present Lungs: unlabored respirations Heart: other: (Irreg irreg) Abdomen: NT/ND Extremities: + edema B (1+) - Telemetry Telemetry Rhythm: Atach --> Aflutter - Labs Result Diagrams: 08/22/18 05:30 08/22/18 05:30 Troponin/CKMB Troponin I 0.015 ng/mL (< 0.028) 08/20/18 15:36 - Assessment/Plan 1. Acute gouty attack. 2. Atrial tachycardia 3. Atrial flutter. 4. COPD 5. CKD stage 3. 6. Type 2 DM. PLAN: - Continue Sotalol. - Will start full anticoagulation given new onset atrial flutter now. - If flutter persists will need ABRIL/DCCV next week.
[2018-08-22] MEDS: Sotalol HCl 80 MG TAB PO SCH (17:40)
[2018-08-22] MEDS: Famotidine 20 MG TAB PO SCH (20:04)
[2018-08-22] MEDS: Atorvastatin Calcium 10 MG TAB PO SCH (20:04)
[2018-08-22] MEDS: Enoxaparin Sodium 120 MG/0.8 ML SYRINGE SC SCH (20:04)
[2018-08-22] MEDS: Zolpidem Tartrate 5 MG TAB PO PRN (20:04)
[2018-08-23] MEDS: Ipratropium Bromide 2.5 ml Neb NEB SCH ×4 (00:05→19:09)
[2018-08-23] MEDS: Sotalol HCl 80 MG TAB PO SCH ×2 (05:58→17:54)
[2018-08-23 06:16] LABS: #Eosinphils 0.3 thou/uL (0.0-0.7); #Lymphocytes 0.9 thou/uL (1.20-3.40); #Monocytes 0.6 thou/uL (0.11-0.59); #Neutrophils 5.2 thou/uL (1.40-6.50); %Basophils 0.2 % (0.0-1.0); %Lymphocytes 13.4 % (21.0-51.0); %Neutrophils 73.4 % (42.0-75.0); Hemoglobin 10.2 g/dL (14.0-18.0); Mean Corpuscular HGB CONC 32.1 g/dL (32.0-36.0); Mean Corpuscular Hemoglobin 27.9 pg (27.0-31.0); Mean Corpuscular Volume 86.9 fL (78.0-98.0); Mean Platelet Volume 7.3 fL (7.4-10.4); Platelet Count 333 thou/uL (130-400); RBC Distribution Width 13.5 % (11.5-14.5); Red Blood Cell (RBC) Count 3.66 mill/uL (4.70-6.10)
[2018-08-23 06:47] LABS: Anion Gap 15 mmol/L (10-20); BUN (Urea Nitrogen) 36 mg/dL (8.4-25.7); Calc. Creatinine Clearance 59 mL/min (70-130); Calcium 8.5 mg/dL (7.8-10.44); Carbon Dioxide 26 mmol/L (23-31); Chloride 99 mmol/L (98-107); Estimated GFR-MDRD 53; Glucose 133 mg/dL (83-110); Potassium 3.7 mmol/L (3.5-5.1); Sodium 136 mmol/L (136-145)
[2018-08-23] MEDS ORDERED: Metoclopramide HCl 10 MG/2 ML VIAL IVP PRN (07:21)
[2018-08-23] MEDS: Enoxaparin Sodium 120 MG/0.8 ML SYRINGE SC SCH ×2 (08:52→20:40)
[2018-08-23] MEDS: Ferrous Sulfate 325 MG TAB PO SCH (08:52)
[2018-08-23] MEDS: Losartan 25 MG TAB PO SCH ×2 (08:52→20:40)
[2018-08-23] MEDS: metFORMIN 500 MG TAB PO SCH ×2 (08:53→17:54)
[2018-08-23] MEDS: Allopurinol 100 MG TAB PO SCH (08:54)
[2018-08-23] MEDS: Potassium Chloride 10 MEQ TAB PO SCH (08:54)
--- NOTE | 2018-08-23 09:22 | EKG ---
Test Reason : Blood Pressure : / mmHG Vent. Rate : 070 BPM Atrial Rate : 280 BPM P-R Int : 000 ms QRS Dur : 142 ms QT Int : 526 ms P-R-T Axes : 254 -76 -33 degrees QTc Int : 568 ms Atrial flutter with 4:1 A-V conduction Left axis deviation Right bundle branch block Inferior infarct , age undetermined Abnormal ECG When compared with ECG of 20-AUG-2018 09:17, (Unconfirmed) Significant changes have occurred Confirmed by BRENDAN KEEN, SNiya ([id number]) on 08/23/2018 9:21:41 AM Referred By: TINY Confirmed By:DR. Twyla CARDONA MD
[2018-08-23] MEDS: Colchicine 0.6 MG TAB PO SCH ×2 (09:24→20:40)
--- NOTE | 2018-08-23 10:54 | PDOC.PN ---
- Subjective Encounter Start Date: 08/23/18 Encounter Start Time: 08:00 Patient seen and examined. No new complaints. No overnight events - Objective Resuscitation Status - Order Detail: 08/20/18 14:52 Resuscitation Status Routine Resuscitation Status: FULL: Full Resuscitation MAR Reviewed: Yes Vital Signs & Weight: Vital Signs (12 hours) Temp Pulse Resp BP BP Pulse Ox 08/23/18 08:53 74 08/23/18 07:56 98.6 F 74 18 121/65 93 L 08/23/18 07:50 95 08/23/18 07:30 88 18 08/23/18 05:58 84 130/68 08/23/18 03:14 98.1 F 84 19 130/68 94 L 08/23/18 00:05 94 18 90 L Weight Weight 266 lb 11.2 oz I&O: 08/22/18 08/23/18 08/24/18 06:59 06:59 06:59 Intake Total 364 920 Output Total 450 400 Balance -86 520 Result Diagrams: 08/23/18 05:17 08/23/18 05:17 Additional Labs: Accuchecks 08/23/18 08/23/18 08/22/18 10:37 05:36 20:45 POC Glucose 180 H 149 H 138 H 08/22/18 08/22/18 16:32 10:54 POC Glucose 145 H 131 H EKG Reviewed by me: Yes Phys Exam - Physical Examination Constitutional: NAD HEENT: PERRLA, moist MMs, sclera anicteric Neck: no JVD, supple Respiratory: no wheezing, no rales, no rhonchi Cardiovascular: RRR, no significant murmur, no rub Gastrointestinal: soft, non-tender, no distention, positive bowel sounds obesity+ Musculoskeletal: no edema, pulses present Neurological: non-focal, normal sensation, moves all 4 limbs Lymphatic: no nodes Psychiatric: normal affect, A&O x 3 Skin: no rash, normal turgor Dx/Plan (1) 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 Code(s): I50.33 - ACUTE ON CHRONIC DIASTOLIC (CONGESTIVE) HEART FAILURE Status : Acute (2) Multifocal atrial tachycardia Code(s): I47.1 - SUPRAVENTRICULAR TACHYCARDIA Status: Acute Comment: vs afib (3) Swelling of right hand Code(s): M79.89 - OTHER SPECIFIED SOFT TISSUE DISORDERS Status: Acute Comment: likely due to gout (4) Anemia, normocytic normochromic Code(s): D64.9 - ANEMIA, UNSPECIFIED Status: Chronic (5) CKD (chronic kidney disease) stage 3, GFR 30-59 ml/min Code(s): N18.3 - CHRONIC KIDNEY DISEASE, STAGE 3 (MODERATE) Status: Chronic (6) COPD (chronic obstructive pulmonary disease) Status: Chronic (7) Diabetes type 2, controlled Code(s): E11.9 - TYPE 2 DIABETES MELLITUS WITHOUT COMPLICATIONS Status: Chronic (8) Dyslipidemia Code(s): E78.5 - HYPERLIPIDEMIA, UNSPECIFIED Status: Chronic (9) Gout Code(s): M10.9 - GOUT, UNSPECIFIED Status: Chronic (10) Hypertension Code(s): I10 - ESSENTIAL (PRIMARY) HYPERTENSION Status: Chronic (11) Obesity (BMI 30-39.9) Code(s): E66.9 - OBESITY, UNSPECIFIED Status: Chronic (12) New onset atrial flutter Code(s): I48.92 - UNSPECIFIED ATRIAL FLUTTER Status: Acute - Plan cont current plan of care, PT/OT, social research assistant * Sotalol started, will monitor daily EKG for QT interval * medication reviewed as below * symptomatic treatment * cardiology and EP recommendation appreciated * acute gout has improved with colchicine * evaluated for need for SNU. * continue lovenox as per cardio Review of Systems - Review of Systems Constitutional: weakness. negative: fever, chills, sweats, malaise, other ENT: negative: Ear Pain, Ear Discharge, Nose Pain, Nose Discharge, Nose Congestion, Mouth Pain, Mouth Swelling, Throat Pain, Throat Swelling, Other Respiratory: negative: Cough, Dry, Shortness of Breath, Hemoptysis, SOB with Excertion, Pleuritic Pain, Sputum, Wheezing Cardiovascular: negative: chest pain, palpitations, orthopnea, paroxysmal nocturnal dyspnea, edema, light headedness, other Gastrointestinal: negative: Nausea, Vomiting, Abdominal Pain, Diarrhea, Constipation, Melena, Hematochezia, Other Genitourinary: negative: Dysuria, Frequency, Incontinence, Hematuria, Retention , Other Musculoskeletal: negative: Neck Pain, Shoulder Pain, Arm Pain, Back Pain, Hand Pain, Leg Pain, Foot Pain, Other - Medications/Allergies Allergies/Adverse Reactions: Allergies Allergy/AdvReac Type Severity Reaction Status Date / Time No Known Allergies Allergy Unverified 08/20/18 14:44 Medications: Current Medications Acetaminophen (Tylenol) 650 mg PO Q4H PRN PRN Reason: Headache/Fever/Mild Pain (1-3) Hydrocodone Bitart/Acetaminophen ([place] 5/325) 1 tab PO Q4H PRN PRN Reason: Moderate Pain (4-6) Albuterol Sulfate (Proventil Hfa) 2 puff INH Q6H PRN PRN Reason: SOB &/or Wheezing Albuterol Sulfate (Ventolin) 2.5 mg NEB Q6H PRN PRN Reason: Dyspnea/Wheezing/SOB Allopurinol (Zyloprim) 100 mg PO DAILY [facility] Last Admin: 08/23/18 08:54 Dose: 100 mg Artificial Tears (Tears Naturale) 2 drop EA EYE PRN PRN PRN Reason: Dry Eyes Atorvastatin Calcium (Lipitor) 10 mg PO HS [facility] Last Admin: 08/22/18 20:04 Dose: 10 mg Bisacodyl (Dulcolax) 10 mg PO DAILYPRN PRN PRN Reason: Constipation Bisacodyl (Dulcolax) 10 mg IN DAILYPRN PRN PRN Reason: Constipation Calcium Carbonate (Tums) 1,000 mg PO Q4H PRN PRN Reason: Heartburn or Indigestion Colchicine (Colchicine) 0.6 mg PO BID [facility] Last Admin: 08/23/18 09:24 Dose: 0.6 mg Dextrose/Water (Dextrose 50%) 25 gm SLOW IVP PRN PRN PRN Reason: Hypoglycemia Diltiazem HCl (Cardizem Cd) 120 mg PO DAILY [facility] Last Admin: 08/23/18 08:53 Dose: 120 mg Enoxaparin Sodium (Lovenox) 120 mg SC 0900,2099 [facility] Last Admin: 08/23/18 08:52 Dose: 120 mg Famotidine (Pepcid) 20 mg PO 2099 [facility] Last Admin: 08/22/18 20:04 Dose: 20 mg Ferrous Sulfate (Feosol) 325 mg PO QAM-WM [facility] Last Admin: 08/23/18 08:52 Dose: 325 mg Glucagon (Glucagon) 1 mg IM PRN PRN PRN Reason: Hypoglycemia Guaifenesin (Robitussin Sf) 200 mg PO Q4H PRN PRN Reason: Cough Last Admin: 08/20/18 18:09 Dose: 200 mg Hydralazine HCl (Apresoline) 10 mg SLOW IVP Q4H PRN PRN Reason: SBP > 180 and HR < 70 Dextrose/Water (D5w) 1,000 mls @ 0 mls/hr IV .Q0M PRN PRN Reason: Hypoglycemia Insulin Human Lispro (Humalog) 0 units SC .MODERATE SLIDING SC PRN PRN Reason: Moderate Correctional Scale Insulin Human Lispro (Humalog) 0 units SC .BEDTIME SLIDING SC PRN PRN Reason: Bedtime Correctional Scale Ipratropium [place] (Atrovent) 2.5 ml NEB [id number] [facility] Last Admin: 08/23/18 07:30 Dose: 2.5 ml Loperamide HCl (Imodium) 2 mg PO PRN PRN PRN Reason: Diarrhea/Loose Stools Loratadine (Claritin) 10 mg PO DAILYPRN PRN PRN Reason: Sinus Symptoms Losartan Potassium (Cozaar) 25 mg PO BID [facility] Last Admin: 08/23/18 08:52 Dose: 25 mg Metformin HCl (Glucophage) 1,000 mg PO BID-[facility] Last Admin: 08/23/18 08:53 Dose: 1,000 mg Metoclopramide HCl (Reglan) 10 mg IVP Q6H PRN PRN Reason: Nausea/Vomiting Potassium Chloride (Klor-Con 10) 10 meq PO QAM-[facility] Last Admin: 08/23/18 08:54 Dose: 10 meq Senna/Docusate Sodium (Senokot S) 2 tab PO BID PRN PRN Reason: Constipation Sodium Chloride ([place] Nasal [place] 0.65%) 0 ml EA NARE QIDPRN PRN PRN Reason: Nasal Congestion Sotalol HCl (Betapace) 80 mg PO 0600,1800 [facility] Last Admin: 08/23/18 05:58 Dose: 80 mg Throat Lozenges (Cepastat Lozenges) 1 malcolm PO Q2H PRN PRN Reason: Sore Throat Zolpidem Tartrate (Ambien) 5 mg PO HSPRN PRN PRN Reason: Insomnia Last Admin: 08/22/18 20:04 Dose: 5 mg
--- NOTE | 2018-08-23 15:13 | EKG ---
Test Reason : Blood Pressure : / mmHG Vent. Rate : 093 BPM Atrial Rate : 128 BPM P-R Int : 000 ms QRS Dur : 150 ms QT Int : 422 ms P-R-T Axes : 000 -68 034 degrees QTc Int : 524 ms Atrial fibrillation Right bundle branch block Left anterior fascicular block Bifascicular block Abnormal ECG Confirmed by BALJIT CHAND ([id number]), health editor RAMONA TELLO ([id number]) on 08/23/2018 3:12:51 PM Referred By: Confirmed By:BALJIT CHAND
--- NOTE | 2018-08-23 16:55 | PDOC.CTH ---
Cardiology Progress Note - Subjective The pt seen and examined. No overnight events. No cardiac complaints. He is up to chair now with alarm on. He stated his BLE edema has been improving since this admission. - Objective Vital Signs Temp Pulse Resp BP BP Pulse Ox 08/23/18 16:47 98.2 F 74 18 124/66 94 L 08/23/18 12:15 97.8 F 71 18 125/76 94 L 08/23/18 08:53 74 08/23/18 07:56 98.6 F 74 18 121/65 93 L 08/23/18 07:50 95 08/23/18 07:30 88 18 08/23/18 05:58 84 130/68 Weight 266 lb 11.2 oz 08/22/18 08/23/18 08/24/18 06:59 06:59 06:59 Intake Total 364 920 Output Total 450 400 Balance -86 520 - Physical Examination General/Neuro: other: (A&O to self) Lungs: other: (diminished at bases) Heart: RRR Abdomen: soft Extremities: other: (2+ pitting BLE edema) - Telemetry Telemetry Rhythm: SR 70s - Labs Result Diagrams: 08/23/18 05:17 08/23/18 05:17 Troponin/CKMB Troponin I 0.015 ng/mL (< 0.028) 08/20/18 15:36 - Assessment/Plan 1. Atrial tachycardia - remains in SR with Sotalol 80mg BID; On Lovenox BID; per EP, the pt does not need OACs. May cont. ASA 2. Chronic Diastolic HF - stable with RA; On bblocker and losartan 25mg BID; will resume Lasix 20mg PO qd; caution of hx of CKD 3. HTN - stable 4. COPD 5. CKD stage 3 - unchanged. 6. Type 2 DM. 7. Acute gouty attack - stable with colchicine 8. Anemia MAR reviewed Pt. seen and eval. by me. I agree with the A/P by the CONTROL OFFICER MANAGER. Chest clear. RRR. EKG reviewed. QT slightly increased. Will repeat with next dose of sotolol. Review of Systems - Review of Systems Constitutional: reports: no symptoms reported EENTM: reports: no symptoms reported Respiratory: reports: no symptoms reported Cardiac (ROS): reports: no symptoms reported ABD/GI: reports: no symptoms reported : reports: no symptoms reported
[2018-08-23] MEDS: Zolpidem Tartrate 5 MG TAB PO PRN (20:40)
[2018-08-23] MEDS: Atorvastatin Calcium 10 MG TAB PO SCH (20:40)
[2018-08-23] MEDS: Famotidine 20 MG TAB PO SCH (20:40)
[2018-08-24] MEDS: Ipratropium Bromide 2.5 ml Neb NEB SCH ×5 (00:01→23:23)
[2018-08-24] MEDS: Sotalol HCl 80 MG TAB PO SCH ×2 (05:52→17:55)
[2018-08-24] MEDS: Potassium Chloride 10 MEQ TAB PO SCH (08:56)
[2018-08-24] MEDS: Allopurinol 100 MG TAB PO SCH (08:56)
[2018-08-24] MEDS: Losartan 25 MG TAB PO SCH ×2 (08:56→21:39)
[2018-08-24] MEDS: Furosemide 20 MG TAB PO SCH (08:56)
[2018-08-24] MEDS: Ferrous Sulfate 325 MG TAB PO SCH (08:56)
[2018-08-24] MEDS: metFORMIN 500 MG TAB PO SCH ×2 (08:56→17:54)
[2018-08-24] MEDS: Colchicine 0.6 MG TAB PO SCH ×2 (09:00→21:41)
[2018-08-24] MEDS: Enoxaparin Sodium 120 MG/0.8 ML SYRINGE SC SCH ×2 (09:01→21:39)
--- NOTE | 2018-08-24 12:02 | PDOC.PN ---
- Subjective Encounter Start Date: 08/24/18 Encounter Start Time: 08:00 Patient seen and examined. No new complaints. No overnight events - Objective Resuscitation Status - Order Detail: 08/20/18 14:52 Resuscitation Status Routine Resuscitation Status: FULL: Full Resuscitation MAR Reviewed: Yes Vital Signs & Weight: Vital Signs (12 hours) Temp Pulse Resp BP Pulse Ox 08/24/18 08:56 85 08/24/18 07:40 98.0 F 95 18 129/80 95 08/24/18 07:35 94 L 08/24/18 07:04 85 18 08/24/18 05:52 94 08/24/18 04:18 97.4 F L 94 19 131/72 92 L 08/24/18 00:01 92 16 Weight Weight 266 lb 11.2 oz I&O: 08/23/18 08/24/18 08/25/18 06:59 06:59 06:59 Intake Total 920 1040 Output Total 400 1160 Balance 520 -120 Result Diagrams: 08/23/18 05:17 08/23/18 05:17 Additional Labs: Accuchecks 08/24/18 08/24/18 08/23/18 10:26 05:58 20:35 POC Glucose 185 H 123 H 119 H 08/23/18 16:38 POC Glucose 124 H EKG Reviewed by me: Yes Phys Exam - Physical Examination Constitutional: NAD HEENT: PERRLA, moist MMs, sclera anicteric Neck: no JVD, supple Respiratory: no wheezing, no rales, no rhonchi Cardiovascular: RRR, no significant murmur, no rub Gastrointestinal: soft, non-tender, no distention, positive bowel sounds Musculoskeletal: no edema, pulses present Neurological: non-focal, normal sensation, moves all 4 limbs Lymphatic: no nodes Psychiatric: normal affect, A&O x 3 Skin: no rash, normal turgor Dx/Plan (1) 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 Code(s): I50.33 - ACUTE ON CHRONIC DIASTOLIC (CONGESTIVE) HEART FAILURE Status : Acute (2) Multifocal atrial tachycardia Code(s): I47.1 - SUPRAVENTRICULAR TACHYCARDIA Status: Acute Comment: vs afib (3) Swelling of right hand Code(s): M79.89 - OTHER SPECIFIED SOFT TISSUE DISORDERS Status: Acute Comment: likely due to gout (4) Anemia, normocytic normochromic Code(s): D64.9 - ANEMIA, UNSPECIFIED Status: Chronic (5) CKD (chronic kidney disease) stage 3, GFR 30-59 ml/min Code(s): N18.3 - CHRONIC KIDNEY DISEASE, STAGE 3 (MODERATE) Status: Chronic (6) COPD (chronic obstructive pulmonary disease) Status: Chronic (7) Diabetes type 2, controlled Code(s): E11.9 - TYPE 2 DIABETES MELLITUS WITHOUT COMPLICATIONS Status: Chronic (8) Dyslipidemia Code(s): E78.5 - HYPERLIPIDEMIA, UNSPECIFIED Status: Chronic (9) Gout Code(s): M10.9 - GOUT, UNSPECIFIED Status: Chronic (10) Hypertension Code(s): I10 - ESSENTIAL (PRIMARY) HYPERTENSION Status: Chronic (11) Obesity (BMI 30-39.9) Code(s): E66.9 - OBESITY, UNSPECIFIED Status: Chronic (12) New onset atrial flutter Code(s): I48.92 - UNSPECIFIED ATRIAL FLUTTER Status: Acute - Plan cont current plan of care * pt is overall doing well * stable with current treatment * will defer lovenox to cardiology * medication reviewed as below * symptomatic treatment * monitor tele and QT interval. Review of Systems - Review of Systems ENT: negative: Ear Pain, Ear Discharge, Nose Pain, Nose Discharge, Nose Congestion, Mouth Pain, Mouth Swelling, Throat Pain, Throat Swelling, Other Respiratory: negative: Cough, Dry, Shortness of Breath, Hemoptysis, SOB with Excertion, Pleuritic Pain, Sputum, Wheezing Cardiovascular: negative: chest pain, palpitations, orthopnea, paroxysmal nocturnal dyspnea, edema, light headedness, other Gastrointestinal: negative: Nausea, Vomiting, Abdominal Pain, Diarrhea, Constipation, Melena, Hematochezia, Other Genitourinary: negative: Dysuria, Frequency, Incontinence, Hematuria, Retention , Other Musculoskeletal: negative: Neck Pain, Shoulder Pain, Arm Pain, Back Pain, Hand Pain, Leg Pain, Foot Pain, Other - Medications/Allergies Allergies/Adverse Reactions: Allergies Allergy/AdvReac Type Severity Reaction Status Date / Time No Known Allergies Allergy Unverified 08/20/18 14:44 Medications: Current Medications Acetaminophen (Tylenol) 650 mg PO Q4H PRN PRN Reason: Headache/Fever/Mild Pain (1-3) Hydrocodone Bitart/Acetaminophen ([place] 5/325) 1 tab PO Q4H PRN PRN Reason: Moderate Pain (4-6) Albuterol Sulfate (Ventolin) 2.5 mg NEB Q6H PRN PRN Reason: Dyspnea/Wheezing/SOB Allopurinol (Zyloprim) 100 mg PO DAILY [facility] Last Admin: 08/24/18 08:56 Dose: 100 mg Artificial Tears (Tears Naturale) 2 drop EA EYE PRN PRN PRN Reason: Dry Eyes Atorvastatin Calcium (Lipitor) 10 mg PO HS [facility] Last Admin: 08/23/18 20:40 Dose: 10 mg Bisacodyl (Dulcolax) 10 mg PO DAILYPRN PRN PRN Reason: Constipation Bisacodyl (Dulcolax) 10 mg DE DAILYPRN PRN PRN Reason: Constipation Calcium Carbonate (Tums) 1,000 mg PO Q4H PRN PRN Reason: Heartburn or Indigestion Colchicine (Colchicine) 0.6 mg PO BID [facility] Last Admin: 08/24/18 09:00 Dose: 0.6 mg Dextrose/Water (Dextrose 50%) 25 gm SLOW IVP PRN PRN PRN Reason: Hypoglycemia Diltiazem HCl (Cardizem Cd) 120 mg PO DAILY [facility] Last Admin: 08/24/18 08:56 Dose: 120 mg Enoxaparin Sodium (Lovenox) 120 mg SC 0900,2100 [facility] Last Admin: 08/24/18 09:01 Dose: 120 mg Famotidine (Pepcid) 20 mg PO 2100 [facility] Last Admin: 08/23/18 20:40 Dose: 20 mg Ferrous Sulfate (Feosol) 325 mg PO QA-[facility] Last Admin: 08/24/18 08:56 Dose: 325 mg Furosemide (Lasix) 20 mg PO DAILY [facility] Last Admin: 08/24/18 08:56 Dose: 20 mg Glucagon (Glucagon) 1 mg IM PRN PRN PRN Reason: Hypoglycemia Guaifenesin (Robitussin Sf) 200 mg PO Q4H PRN PRN Reason: Cough Last Admin: 08/20/18 18:09 Dose: 200 mg Hydralazine HCl (Apresoline) 10 mg SLOW IVP Q4H PRN PRN Reason: SBP > 180 and HR < 70 Dextrose/Water (D5w) 1,000 mls @ 0 mls/hr IV .Q0M PRN PRN Reason: Hypoglycemia Insulin Human Lispro (Humalog) 0 units SC .MODERATE SLIDING SC PRN PRN Reason: Moderate Correctional Scale Insulin Human Lispro (Humalog) 0 units SC .BEDTIME SLIDING SC PRN PRN Reason: Bedtime Correctional Scale Ipratropium Com[place] (Atrovent) 2.5 ml NEB [id number] [facility] Last Admin: 08/24/18 07:04 Dose: 2.5 ml Loperamide HCl (Imodium) 2 mg PO PRN PRN PRN Reason: Diarrhea/Loose Stools Loratadine (Claritin) 10 mg PO DAILYPRN PRN PRN Reason: Sinus Symptoms Losartan Potassium (Cozaar) 25 mg PO BID [facility] Last Admin: 08/24/18 08:56 Dose: 25 mg Metformin HCl (Glucophage) 1,000 mg PO BID-[facility] Last Admin: 08/24/18 08:56 Dose: 1,000 mg Metoclopramide HCl (Reglan) 10 mg IVP Q6H PRN PRN Reason: Nausea/Vomiting Potassium Chloride (Klor-Con 10) 10 meq PO QAM-[facility] Last Admin: 08/24/18 08:56 Dose: 10 meq Senna/Docusate Sodium (Senokot S) 2 tab PO BID PRN PRN Reason: Constipation Sodium Chloride ([place] Nasal [place] 0.65%) 0 ml EA NARE QIDPRN PRN PRN Reason: Nasal Congestion Sotalol HCl (Betapace) 80 mg PO 0600,1800 [facility] Last Admin: 08/24/18 05:52 Dose: 80 mg Throat Lozenges (Cepastat Lozenges) 1 malcolm PO Q2H PRN PRN Reason: Sore Throat Zolpidem Tartrate (Ambien) 5 mg PO HSPRN PRN PRN Reason: Insomnia Last Admin: 08/23/18 20:40 Dose: 5 mg
--- NOTE | 2018-08-24 14:47 | PDOC.CTH ---
Cardiology Progress Note - Subjective The pt seen and examined. No overnight events. No cardiac complaints. The pt is more alerted today and able to follow commands. - Objective Vital Signs Temp Pulse Resp BP Pulse Ox 08/24/18 12:59 81 18 08/24/18 12:42 97.9 F 93 18 132/74 95 08/24/18 08:56 85 08/24/18 07:40 98.0 F 95 18 129/80 95 08/24/18 07:35 94 L 08/24/18 07:04 85 18 08/24/18 05:52 94 08/24/18 04:18 97.4 F L 94 19 131/72 92 L Weight 266 lb 11.2 oz 08/23/18 08/24/18 08/25/18 06:59 06:59 06:59 Intake Total 920 1040 Output Total 400 1160 Balance 520 -120 - Physical Examination General/Neuro: alert & oriented x3 Neck: no JVD present Lungs: other: (diminished at bases) Heart: RRR Abdomen: soft Extremities: other: (no edema) - Telemetry Telemetry Rhythm: SR - Labs Result Diagrams: 08/23/18 05:17 08/23/18 05:17 Troponin/CKMB Troponin I 0.015 ng/mL (< 0.028) 08/20/18 15:36 - Assessment/Plan 1. Atrial tachycardia - remains in SR with Sotalol 80mg BID; On Lovenox BID; per EP, the pt does not need OACs. May cont. ASA; 12 lead ECG has not changed QT interval. 2. Chronic Diastolic HF - stable with RA; On bblocker and losartan 25mg BID; will resume Lasix 20mg PO qd; caution of hx of CKD 3. HTN - stable 4. COPD - stable with RA 5. CKD stage 3 - unchanged. 6. Type 2 DM. 7. Acute gouty attack - stable with colchicine 8. Anemia MAR reviewed. Pt. seen and eval. by me. I agree with the A/P by the PHYSICS TEACHER.RR, chest clear. [email or web address] * Dr Jones's pt. Review of Systems - Review of Systems Constitutional: reports: no symptoms reported EENTM: reports: no symptoms reported Respiratory: reports: no symptoms reported Cardiac (ROS): reports: no symptoms reported ABD/GI: reports: no symptoms reported : reports: no symptoms reported Musculoskeletal: reports: no symptoms reported
[2018-08-24] MEDS: Atorvastatin Calcium 10 MG TAB PO SCH (21:39)
[2018-08-24] MEDS: Famotidine 20 MG TAB PO SCH (21:39)
[2018-08-25] MEDS: Sotalol HCl 80 MG TAB PO SCH (05:45)
[2018-08-25] MEDS: Ipratropium Bromide 2.5 ml Neb NEB SCH ×2 (07:35→13:22)
[2018-08-25] MEDS: Enoxaparin Sodium 120 MG/0.8 ML SYRINGE SC SCH (08:29)
[2018-08-25] MEDS: Ferrous Sulfate 325 MG TAB PO SCH (08:30)
[2018-08-25] MEDS: Potassium Chloride 10 MEQ TAB PO SCH (08:30)
[2018-08-25] MEDS: Losartan 25 MG TAB PO SCH (08:30)
[2018-08-25] MEDS: Allopurinol 100 MG TAB PO SCH (08:30)
[2018-08-25] MEDS: metFORMIN 500 MG TAB PO SCH (08:30)
[2018-08-25] MEDS: Furosemide 20 MG TAB PO SCH (08:31)
[2018-08-25 11:52] VITALS: BP 141/83; TEMP 97.5
--- NOTE | 2018-08-25 12:26 | DIS ---
DATE OF ADMISSION: 08/21/2018 DATE OF DISCHARGE: 08/25/2018 PRIMARY CARE PHYSICIAN: [facility] Call admission. DISCHARGE DISPOSITION: Home. PRIMARY DISCHARGE DIAGNOSES: 1. Acute gout attack. 2. Acute on chronic diastolic heart failure. 3. Multifocal atrial tachycardia. 4. New onset atrial flutter. 5. Atrial tachycardia. SECONDARY DISCHARGE DIAGNOSES: Obesity, hypertension, gout, dyslipidemia, diabetes type 2, chronic obstructive pulmonary disease, chronic kidney disease stage 3, normocytic normochromic anemia, physical deconditioning, and chronic diastolic heart failure. PRIMARY PROCEDURE/OPERATION: None. RADIOLOGICAL INVESTIGATION: Echocardiography and ultrasound negative for DVT. Chest x-ray showing congestion. SIGNIFICANT LABORATORY DATA: WBC 7.0, hemoglobin 10.2, and platelets 333. INR 1.1. Sodium 136, potassium 3.7, BUN 36, creatinine 1.53, and calcium 8.5. Urinalysis normal. DISCHARGE MEDICATIONS: 1. ProAir HFA 2 puffs q.6 hourly p.r.n. 2. Allopurinol 100 mg daily. 3. Lasix 40 mg daily. 4. Losartan 25 mg b.i.d. 5. Metformin 1000 mg b.i.d. 6. Potassium chloride 10 mEq p.o. daily. 7. Zocor 20 mg p.o. at bedtime. 8. Spiriva 1 inhalation daily. 9. Eliquis 5 mg b.i.d. 10. Colchicine 0.6 mg b.i.d. for 10 days. 11. Cardizem CD 120 mg p.o. daily. 12. Ferrous sulfate 325 mg p.o. daily. 13. Betapace 80 mg p.o. b.i.d. CONTRAINDICATION: None. CODE STATUS: Full code. INPATIENT PUTTY AND PATCH WORKER: Cardiology group, Dr. Jones was following while in hospital. Sat Tutor group was following while in hospital. TEST RESULT PENDING ON DISCHARGE: None. ALLERGIES: NO KNOWN DRUG ALLERGIES. DISCHARGE PLAN: Posthospital, the patient will follow up with Dr. Jones as well as primary care physician and outbound sales professional as instructed. HOSPITAL COURSE: An 88-year-old male with above-mentioned medical problem, who was admitted by me. Please see my HPI for further details. On admission, the patient was having mainly two problems. One was right upper extremity swelling, which was related with gout, which was treated with colchicine with significant clinical improvement. On discharge, we prescribed colchicine for another 10 days. Second problem was the patient was having atrial arrhythmia including multifocal atrial tachycardia as well as atrial tachycardia and patient also developed atrial flutter while in hospital. Initially, we started on anticoagulation therapy, but as the patient had initially MAT only, Cardiology recommended not to start anticoagulant therapy, but subsequently on monitor, he was found with atrial flutter and Cardiology recommended anticoagulation with Lovenox while in hospital and on discharge Eliquis. His rate was controlled with a Cardizem CD. Sat Tutor recommended that this patient has atrial tachycardia and that is why they recommended Betapace therapy and after Betapace therapy, we monitored QT interval while in the hospital. This patient was also having on admission acute on chronic diastolic heart failure, which was treated with Lasix with significant improvement. By the time of discharge, the patient is on room air and euvolemic. This patient has physical deconditioning chronically and that is why, we addressed discharge planning with the family member and they recommended to continue to go home with family support. The patient is seen and examined at bedside today. If Dr. Jones is okay, then we will consider discharging him later on today. PHYSICAL EXAMINATION: VITAL SIGNS: Currently; temperature 97.6, pulse 66, respiratory rate 16, saturation 95% on room air, and blood pressure 140/83. Weight 266 pounds. GENERAL: The patient is currently alert and awake, in no obvious acute distress. HEAD: Normocephalic and atraumatic. LUNGS: Clear without any rhonchi. CARDIAC: S1 and S2. Regular without any murmur. ABDOMEN: Soft and benign. EXTREMITIES: No edema. NEUROLOGIC: Nonfocal examination. Job ID: [id number]
--- NOTE | 2018-08-25 12:28 | PDOC.PN ---
- Subjective Encounter Start Date: 08/25/18 Encounter Start Time: 10:20 Patient seen and examined. No new complaints. No overnight events - Objective Resuscitation Status - Order Detail: 08/20/18 14:52 Resuscitation Status Routine Resuscitation Status: FULL: Full Resuscitation MAR Reviewed: Yes Vital Signs & Weight: Vital Signs (12 hours) Temp Pulse Resp BP Pulse Ox 08/25/18 11:49 97.5 F L 89 18 141/83 H 91 L 08/25/18 08:30 66 08/25/18 08:00 97.6 F 66 16 165/83 H 91 L 08/25/18 07:35 92 18 95 08/25/18 04:00 98.2 F 92 17 140/83 94 L Weight Weight 266 lb 11.2 oz I&O: 08/24/18 08/25/18 08/26/18 06:59 06:59 06:59 Intake Total 1040 970 Output Total 1160 1180 Balance -120 -210 Result Diagrams: 08/23/18 05:17 08/23/18 05:17 Additional Labs: Accuchecks 08/25/18 08/25/18 08/24/18 10:47 05:32 20:57 POC Glucose 168 H 128 H 155 H 08/24/18 16:38 POC Glucose 122 H EKG Reviewed by me: Yes Phys Exam - Physical Examination Constitutional: NAD HEENT: PERRLA, moist MMs, sclera anicteric Neck: no JVD, supple Respiratory: no wheezing, no rales, no rhonchi Cardiovascular: RRR, no significant murmur, no rub Gastrointestinal: soft, non-tender, no distention, positive bowel sounds Musculoskeletal: pulses present Neurological: non-focal, normal sensation Lymphatic: no nodes Psychiatric: normal affect, A&O x 3 Skin: no rash, normal turgor Dx/Plan (1) 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 Code(s): I50.33 - ACUTE ON CHRONIC DIASTOLIC (CONGESTIVE) HEART FAILURE Status : Acute (2) Multifocal atrial tachycardia Code(s): I47.1 - SUPRAVENTRICULAR TACHYCARDIA Status: Acute Comment: vs afib (3) Swelling of right hand Code(s): M79.89 - OTHER SPECIFIED SOFT TISSUE DISORDERS Status: Acute Comment: likely due to gout (4) Anemia, normocytic normochromic Code(s): D64.9 - ANEMIA, UNSPECIFIED Status: Chronic (5) CKD (chronic kidney disease) stage 3, GFR 30-59 ml/min Code(s): N18.3 - CHRONIC KIDNEY DISEASE, STAGE 3 (MODERATE) Status: Chronic (6) COPD (chronic obstructive pulmonary disease) Status: Chronic (7) Diabetes type 2, controlled Code(s): E11.9 - TYPE 2 DIABETES MELLITUS WITHOUT COMPLICATIONS Status: Chronic (8) Dyslipidemia Code(s): E78.5 - HYPERLIPIDEMIA, UNSPECIFIED Status: Chronic (9) Gout Code(s): M10.9 - GOUT, UNSPECIFIED Status: Chronic (10) Hypertension Code(s): I10 - ESSENTIAL (PRIMARY) HYPERTENSION Status: Chronic (11) Obesity (BMI 30-39.9) Code(s): E66.9 - OBESITY, UNSPECIFIED Status: Chronic (12) New onset atrial flutter Code(s): I48.92 - UNSPECIFIED ATRIAL FLUTTER Status: Acute - Plan cont current plan of care * medication reviewed as below * symptomatic treatment * see discharge lio. Review of Systems - Review of Systems ENT: negative: Ear Pain, Ear Discharge, Nose Pain, Nose Discharge, Nose Congestion, Mouth Pain, Mouth Swelling, Throat Pain, Throat Swelling, Other Respiratory: negative: Cough, Dry, Shortness of Breath, Hemoptysis, SOB with Excertion, Pleuritic Pain, Sputum, Wheezing Cardiovascular: negative: chest pain, palpitations, orthopnea, paroxysmal nocturnal dyspnea, edema, light headedness, other Gastrointestinal: negative: Nausea, Vomiting, Abdominal Pain, Diarrhea, Constipation, Melena, Hematochezia, Other Genitourinary: negative: Dysuria, Frequency, Incontinence, Hematuria, Retention , Other Musculoskeletal: negative: Neck Pain, Shoulder Pain, Arm Pain, Back Pain, Hand Pain, Leg Pain, Foot Pain, Other Skin: negative: Rash, Lesions, Jarvis, Bruising, Other - Medications/Allergies Allergies/Adverse Reactions: Allergies Allergy/AdvReac Type Severity Reaction Status Date / Time No Known Allergies Allergy Unverified 08/20/18 14:44 Medications: Current Medications Acetaminophen (Tylenol) 650 mg PO Q4H PRN PRN Reason: Headache/Fever/Mild Pain (1-3) Hydrocodone Bitart/Acetaminophen ([place] 5/325) 1 tab PO Q4H PRN PRN Reason: Moderate Pain (4-6) Albuterol Sulfate (Ventolin) 2.5 mg NEB Q6H PRN PRN Reason: Dyspnea/Wheezing/SOB Allopurinol (Zyloprim) 100 mg PO DAILY [facility] Last Admin: 08/25/18 08:30 Dose: 100 mg Artificial Tears (Tears Naturale) 2 drop EA EYE PRN PRN PRN Reason: Dry Eyes Atorvastatin Calcium (Lipitor) 10 mg PO [facility] Last Admin: 08/24/18 21:39 Dose: 10 mg Bisacodyl (Dulcolax) 10 mg PO DAILYPRN PRN PRN Reason: Constipation Bisacodyl (Dulcolax) 10 mg AL DAILYPRN PRN PRN Reason: Constipation Calcium Carbonate (Tums) 1,000 mg PO Q4H PRN PRN Reason: Heartburn or Indigestion Colchicine (Colchicine) 0.6 mg PO BID [facility] Last Admin: 08/24/18 21:41 Dose: Not Given Dextrose/Water (Dextrose 50%) 25 gm SLOW IVP PRN PRN PRN Reason: Hypoglycemia Diltiazem HCl (Cardizem Cd) 120 mg PO DAILY [facility] Last Admin: 08/25/18 08:30 Dose: 120 mg Enoxaparin Sodium (Lovenox) 120 mg SC 0900,2100 [facility] Last Admin: 08/25/18 08:29 Dose: 120 mg Famotidine (Pepcid) 20 mg PO 2100 [facility] Last Admin: 08/24/18 21:39 Dose: 20 mg Ferrous Sulfate (Feosol) 325 mg PO QA-[facility] Last Admin: 08/25/18 08:30 Dose: 325 mg Furosemide (Lasix) 20 mg PO DAILY [facility] Last Admin: 08/25/18 08:31 Dose: 20 mg Glucagon (Glucagon) 1 mg IM PRN PRN PRN Reason: Hypoglycemia Guaifenesin (Robitussin Sf) 200 mg PO Q4H PRN PRN Reason: Cough Last Admin: 08/20/18 18:09 Dose: 200 mg Hydralazine HCl (Apresoline) 10 mg SLOW IVP Q4H PRN PRN Reason: SBP > 180 and HR < 70 Dextrose/Water (D5w) 1,000 mls @ 0 mls/hr IV .Q0M PRN PRN Reason: Hypoglycemia Insulin Human Lispro (Humalog) 0 units SC .MODERATE SLIDING SC PRN PRN Reason: Moderate Correctional Scale Last Admin: 08/25/18 12:07 Dose: 2 units Insulin Human Lispro (Humalog) 0 units SC .BEDTIME SLIDING SC PRN PRN Reason: Bedtime Correctional Scale Ipratropium [place] (Atrovent) 2.5 ml NEB [id number] [facility] Last Admin: 08/25/18 07:35 Dose: 2.5 ml Loperamide HCl (Imodium) 2 mg PO PRN PRN PRN Reason: Diarrhea/Loose Stools Loratadine (Claritin) 10 mg PO DAILYPRN PRN PRN Reason: Sinus Symptoms Losartan Potassium (Cozaar) 25 mg PO BID [facility] Last Admin: 08/25/18 08:30 Dose: 25 mg Metformin HCl (Glucophage) 1,000 mg PO BID-[facility] Last Admin: 08/25/18 08:30 Dose: 1,000 mg Metoclopramide HCl (Reglan) 10 mg IVP Q6H PRN PRN Reason: Nausea/Vomiting Potassium Chloride (Klor-Con 10) 10 meq PO QAM-[facility] Last Admin: 08/25/18 08:30 Dose: 10 meq Senna/Docusate Sodium (Senokot S) 2 tab PO BID PRN PRN Reason: Constipation Sodium Chloride ([place] Nasal [place] 0.65%) 0 ml EA NARE QIDPRN PRN PRN Reason: Nasal Congestion Sotalol HCl (Betapace) 80 mg PO 0600,1800 [facility] Last Admin: 08/25/18 05:45 Dose: 80 mg Throat Lozenges (Cepastat Lozenges) 1 malcolm PO Q2H PRN PRN Reason: Sore Throat Zolpidem Tartrate (Ambien) 5 mg PO HSPRN PRN PRN Reason: Insomnia Last Admin: 08/23/18 20:40 Dose: 5 mg
--- NOTE | 2018-08-25 12:52 | PDOC.CTH ---
Cardiology Progress Note - Subjective He is doing much better. - Objective Vital Signs Temp Pulse Resp BP Pulse Ox 08/25/18 11:49 97.5 F L 89 18 141/83 H 91 L 08/25/18 08:30 66 08/25/18 08:00 97.6 F 66 16 165/83 H 91 L 08/25/18 07:35 92 18 95 08/25/18 04:00 98.2 F 92 17 140/83 94 L Weight 266 lb 11.2 oz 08/24/18 08/25/18 08/26/18 06:59 06:59 06:59 Intake Total 1040 970 Output Total 1160 1180 Balance -120 -210 - Physical Examination General/Neuro: alert & oriented x3, NAD Neck: no JVD present Lungs: unlabored respirations Heart: RRR Abdomen: NT/ND Extremities: + edema B (1+) - Telemetry Telemetry Rhythm: NSR - Labs Result Diagrams: 08/23/18 05:17 08/23/18 05:17 Troponin/CKMB Troponin I 0.015 ng/mL (< 0.028) 08/20/18 15:36 - Assessment/Plan 1. Acute gouty attack. 2. Atrial tachycardia 3. Atrial flutter. 4. COPD 5. CKD stage 3. 6. Type 2 DM. PLAN: - Continue Sotalol. - Eliquis 2.5 mg BID for stroke prophylaxis for the a flutter. - Follow up in the office in 4 weeks. - May discharge home.
[2018-08-25] MEDS: Colchicine 0.6 MG TAB PO SCH (13:59)
[2018-08-25] MEDS ORDERED: Colchicine 0.6 MG TAB PO SCH ×2 (21:00)
--- NOTE | 2018-08-26 21:55 | EKG ---
Test Reason : Blood Pressure : / mmHG Vent. 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 Twyla CARDONA MD
--- NOTE | 2018-08-26 21:57 | EKG ---
Test Reason : TIMED Blood Pressure : / mmHG Vent. 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 [place] (4) on 08/26/2018 9:57:09 PM Referred By: DARYL Confirmed By:DR. Twyla CARDONA MD
--- NOTE | 2018-08-26 21:58 | EKG ---
Test Reason : MEDICATION Blood Pressure : / mmHG Vent. 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 [place] (4) on 08/26/2018 9:58:04 PM Referred By: DARYL Confirmed By:DR. Twyla CARDONA MD
== END 2018-08-25 16:46 | disposition home or self-care (01) | DRG 291 ==
LOC: ERS 08:59 → 2SW 13:54 → OBSVTOIN 08-21 10:33 → 2NO 08-21 11:58
PROVIDERS: ADMIT Internal Medicine; ATTEND Internal Medicine
DX: I13.0 Hypertensive heart and chronic kidney disease with heart failure and stage 1 through stage 4 chronic kidney disease, or unspecified chronic kidney disease (principal); I50.33 Acute on chronic diastolic (congestive) heart failure; I47.1 Supraventricular tachycardia; I48.92 Unspecified atrial flutter; J44.9 Chronic obstructive pulmonary disease, unspecified; I48.91 Unspecified atrial fibrillation; N18.3 Chronic kidney disease, stage 3 (moderate); E11.22 Type 2 diabetes mellitus with diabetic chronic kidney disease; D63.1 Anemia in chronic kidney disease; E78.5 Hyperlipidemia, unspecified; Z79.899 Other long term (current) drug therapy; Z79.51 Long term (current) use of inhaled steroids; Z79.84 Long term (current) use of oral hypoglycemic drugs; Z68.36 Body mass index [BMI] 36.0-36.9, adult; Z87.891 Personal history of nicotine dependence; E66.9 Obesity, unspecified; M10.9 Gout, unspecified; M1A.9XX0 Chronic gout, unspecified, without tophus (tophi)
CPT/HCPCS: 36415; 36416; 71045; 80048; 80053; 81001; 83735; 83880; 84443; 84484; 84550; 85025; 85610; 85730; 86140; 87324; 87449; 90471; 90670; 93005; 93010; 93306; 93798; 94640; 94760; 96374; G0009; J1650; J1940

== ENCOUNTER 2019-03-11 12:52 | Emergency (ER) | payer MEDICARE, MEDICAID ==
[2019-03-11] MEDS ORDERED: Iopamidol-370 76% 500 ML 1 ML ONE (14:38)
[2019-03-11] MEDS ORDERED: Morphine 4 MG/ML VIAL ONE (15:09)
[2019-03-11 15:14] LABS: #Eosinphils 0.1 thou/uL (0.0-0.7); #Lymphocytes 1.6 thou/uL (1.20-3.40); #Monocytes 0.6 thou/uL (0.11-0.59); #Neutrophils 5.3 thou/uL (1.40-6.50); %Basophils 0.1 % (0.0-1.0); %Eosinophils 1.1 % (0.0-10.0); %Lymphocytes 20.8 % (21.0-51.0); %Monocytes 7.8 % (0.0-10.0); %Neutrophils 70.2 % (42.0-75.0); Hemoglobin 10.8 g/dL (14.0-18.0); Mean Corpuscular HGB CONC 33.5 g/dL (32.0-36.0); Mean Corpuscular Hemoglobin 27.8 pg (27.0-31.0); Mean Platelet Volume 7.5 fL (7.4-10.4); Platelet Count 245 thou/uL (130-400); RBC Distribution Width 13.8 % (11.5-14.5); White Blood Cell (WBC) Count 7.5 thou/uL (4.8-10.8)
[2019-03-11] MEDS ORDERED: Lidocaine 1% (PF) 30 ML VIAL ONE (15:30)
[2019-03-11 15:38] LABS: Anion Gap 13 mmol/L (10-20); BUN (Urea Nitrogen) 17 mg/dL (8.4-25.7); Calc. Creatinine Clearance 0 mL/min (70-130); Calcium 8.9 mg/dL (7.8-10.44); Carbon Dioxide 24 mmol/L (23-31); Chloride 100 mmol/L (98-107); Estimated GFR-MDRD 65; Glucose 160 mg/dL (83-110); Potassium 4.2 mmol/L (3.5-5.1); Sodium 133 mmol/L (136-145)
--- NOTE | 2019-03-11 16:25 | CT ---
CT angiography of head and neck performed with and without intravenous contrast enhancement with 3-D reconstructions HISTORY: Right-sided neck pain. Slurred speech. COMPARISON: None. FINDINGS: The noncontrast CT examination shows atrophy and chronic white matter change. No hemorrhage . The lung apices are clear of any infiltrative process. 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 It measures approximately 3.8 cm in diameter at this level. Thyroid nodules are identified. Vocal cord region appears unremarkable. Nonsp ecific small jugular chain nodes are seen. The parotid and submandibular glands appear normal The right vertebral artery is dominant although the left vertebral doesn't contribute to the basilar artery. The right common carotid artery is tortuous. There is atherosclerotic change at the bifurcation. Ther e is no significant stenosis of the internal carotid artery. Internal carotid arteries medially deviated. 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 There is atheroscl erotic change at the carotid bifurcation but no evidence of any hemodynamically significant stenosis. CT angiography of head: There is atherosclerotic disease at the cavernous portions of both internal c arotid arteries. The anterior and middle cerebral arteries proximally show no areas of stenosis or intraluminal thrombus. The left sylvian branches appear slightly less prominent than right. I think t his is just related to slight obliquity. IMPRESSION: 1. No evidence of hemodynamically significant stenosis of either internal carotid artery. 2. No evidence of any intraluminal thrombus or dissection of the intracranial vessels.
[2019-03-11 17:43] LABS: RBC Count-Automated (BF) 828 /cumm; WBC/Nucleated-Auto (BF) 7319 uL
[2019-03-11 18:02] LABS: Body Fluid Source Synovial Fluid
[2019-03-11 18:03] LABS: BF Color Colorless; Clarity Hazy (Clear); Tube # EDTA
[2019-03-11 18:04] LABS: BF Segmented Neutrophils 74 %; Cell Count Non Hematic 23 %; Lymphocytes 3 %
== END 2019-03-11 17:35 | disposition home or self-care (01) ==
LOC: ERS 12:52
DX: M54.2 Cervicalgia (principal); M25.561 Pain in right knee; M25.562 Pain in left knee
CPT/HCPCS: 20610; 36415; 70496; 70498; 80048; 82945; 85025; 85060; 87070; 87205; 87804; 89051; 89060; 96374; J2001; J2270; Q9967

== ENCOUNTER 2019-12-28 10:25 | Emergency (ER) | payer MEDICARE, MEDICAID, OTHER ==
[2019-12-28 11:20] LABS: #Eosinphils 0.3 thou/uL (0.0-0.7); #Lymphocytes 1.5 thou/uL (1.20-3.40); #Monocytes 0.5 thou/uL (0.11-0.59); #Neutrophils 3.5 thou/uL (1.40-6.50); %Basophils 0.3 % (0.0-1.0); %Eosinophils 4.7 % (0.0-10.0); %Lymphocytes 25.6 % (21.0-51.0); %Neutrophils 61.4 % (42.0-75.0); Hemoglobin 10.2 g/dL (14.0-18.0); Mean Corpuscular HGB CONC 32.9 g/dL (32.0-36.0); Mean Corpuscular Hemoglobin 28.5 pg (27.0-31.0); Mean Corpuscular Volume 86.6 fL (78.0-98.0); Mean Platelet Volume 8.4 fL (7.4-10.4); Platelet Count 240 thou/uL (130-400); RBC Distribution Width 14.8 % (11.5-14.5); Red Blood Cell (RBC) Count 3.59 mill/uL (4.70-6.10); White Blood Cell (WBC) Count 5.8 thou/uL (4.8-10.8)
--- NOTE | 2019-12-28 11:24 | RAD ---
XR Chest 1 View Portable HISTORY: Cough COMPARISON: 08/18/2019 FINDINGS: The heart is enlarged. The aorta is tortuous. No focal areas of consolidation or pneumothor aces, luis edema or large effusions are seen.
[2019-12-28 11:50] LABS: ALT (SGPT) 12 U/L (8-55); AST (SGOT) 18 U/L (5-34); Albumin 3.8 g/dL (3.4-4.8); Alkaline Phosphatase 121 U/L (40-110); Anion Gap 15 mmol/L (10-20); BUN (Urea Nitrogen) 10 mg/dL (8.4-25.7); Bilirubin, Total 0.4 mg/dL (0.2-1.2); Calc. Creatinine Clearance 0 mL/min (70-130); Calcium 8.8 mg/dL (7.8-10.44); Carbon Dioxide 28 mmol/L (23-31); Chloride 99 mmol/L (98-107); Estimated GFR-MDRD 56; Glucose 346 mg/dL (83-110); Potassium 3.6 mmol/L (3.5-5.1); Protein, Total 8.8 g/dL (5.8-8.1); Sodium 138 mmol/L (136-145)
[2019-12-28 11:52] LABS: Bacteria/HPF None Seen HPF (None Seen); Bilirubin Negative (Negative); Blood, Urine Negative (Negative); Clarity Clear (Clear); Glucose, Urine (Dipstick) 150 mg/dL (Negative); Ketone, Urine Negative (Negative); Leukocyte Negative Leu/uL (Negative); Nitrite Negative (Negative); Protein, Urine (Dipstick) 30 mg/dL (Neg-Trace); RBC/HPF 0-3 HPF (0-3); Squamous Epithelial None Seen HPF (0-3); Urobilinogen Normal mg/dL (Less than 2); WBC/HPF None Seen HPF (0-3); pH, Urine 7.5 (5.0-9.0)
--- NOTE | 2019-12-28 14:40 | ULT ---
EXAM: Left lower extremity venous Doppler US HISTORY: left lower extremity edema and pain FINDINGS: Grayscale, color-flow, Doppler evaluation, spectral analysis of the left lower extremity venous struc tures is performed with 2-D imaging. The left common femoral, superficial femoral, popliteal, posterior tibial, proximal greater saphenous and profunda femoral veins are imaged. The left posterior tibial vein was not satisfactorily visualized. There is normal luminal compressibility, flow, and augmentation the visualized deep venous structures of the left lower extremity. IMPRESSION: No evidence of a deep vein thrombosis in the left lower extremity.
[2019-12-29 12:05] LABS: SARS-CoV-2 MS2 Positive; SARS-CoV-2 N Gene Negative; SARS-CoV-2 S Gene Negative; SARS-CoV-2 by NAA Not Detected (NotDetected); SARS-CoV-2 orf1ab Negative
== END 2019-12-28 16:29 | disposition home or self-care (01) ==
LOC: ERS 10:25
DX: J20.9 Acute bronchitis, unspecified (principal); R60.0 Localized edema; Z20.828 Contact with and (suspected) exposure to other viral communicable diseases; E11.9 Type 2 diabetes mellitus without complications; I11.0 Hypertensive heart disease with heart failure; I50.9 Heart failure, unspecified; E78.5 Hyperlipidemia, unspecified; M10.9 Gout, unspecified; Z87.891 Personal history of nicotine dependence; Z79.84 Long term (current) use of oral hypoglycemic drugs; Z79.01 Long term (current) use of anticoagulants; Z79.899 Other long term (current) drug therapy
CPT/HCPCS: 71045; 80053; 83880; 84484; 85025; 93005; 93971; U0003; 36415; 81003; 81015; 87635

== ENCOUNTER 2020-01-25 16:21 | Emergency (ER) | payer MEDICARE, MEDICAID | END 2020-01-25 18:17 | disposition home or self-care (01) | LOC: ERS 16:21 | DX: H61.21 Impacted cerumen, right ear (principal); H93.11 Tinnitus, right ear; E11.9 Type 2 diabetes mellitus without complications; I11.0 Hypertensive heart disease with heart failure; I50.9 Heart failure, unspecified; E78.5 Hyperlipidemia, unspecified; M10.9 Gout, unspecified; Z87.891 Personal history of nicotine dependence; Z79.899 Other long term (current) drug therapy; Z79.84 Long term (current) use of oral hypoglycemic drugs | CPT/HCPCS: 69210 ==

== ENCOUNTER 2020-08-23 17:17 | Emergency (ER) | payer MEDICARE, MEDICAID ==
[2020-08-23] MEDS ORDERED: Nitroglycerin 2% Ointment 1 INCH/1 GM Packet ONE (17:37)
[2020-08-23] MEDS ORDERED: Furosemide 40 MG/4 ML VIAL ONE (17:37)
[2020-08-23 18:02] LABS: #Eosinphils 0.3 thou/uL (0.0-0.7); #Lymphocytes 1.9 thou/uL (1.20-3.40); #Monocytes 0.6 thou/uL (0.11-0.59); #Neutrophils 3.5 thou/uL (1.40-6.50); %Basophils 0.7 % (0.0-1.0); %Eosinophils 4.6 % (0.0-10.0); %Lymphocytes 29.9 % (21.0-51.0); %Monocytes 8.9 % (0.0-10.0); Hemoglobin 10.4 g/dL (14.0-18.0); Mean Corpuscular HGB CONC 34.5 g/dL (32.0-36.0); Mean Corpuscular Hemoglobin 31.4 pg (27.0-31.0); Mean Platelet Volume 7.3 fL (7.4-10.4); Platelet Count 246 thou/uL (130-400); RBC Distribution Width 13.6 % (11.5-14.5); Red Blood Cell (RBC) Count 3.33 mill/uL (4.70-6.10); White Blood Cell (WBC) Count 6.2 thou/uL (4.8-10.8)
[2020-08-23 18:25] LABS: ALT (SGPT) 10 U/L (8-55); AST (SGOT) 16 U/L (5-34); Albumin 3.7 g/dL (3.4-4.8); Alkaline Phosphatase 89 U/L (40-110); Anion Gap 16 mmol/L (10-20); BUN (Urea Nitrogen) 16 mg/dL (8.4-25.7); Bilirubin, Total 0.5 mg/dL (0.2-1.2); CK (CPK) 342 U/L (30-200); Calc. Creatinine Clearance 0 mL/min (70-130); Calcium 6.7 mg/dL (7.8-10.44); Carbon Dioxide 33 mmol/L (23-31); Chloride 94 mmol/L (98-107); Globulin 4.4 g/dL (2.4-3.5); Glucose 162 mg/dL (83-110); Lipase 26 U/L (8-78); Potassium 3.4 mmol/L (3.5-5.1); Protein, Total 8.1 g/dL (5.8-8.1); Sodium 140 mmol/L (136-145)
== END 2020-08-23 20:25 | disposition home or self-care (01) ==
LOC: ERS 17:17
DX: M79.89 Other specified soft tissue disorders (principal); Z79.899 Other long term (current) drug therapy; Z79.84 Long term (current) use of oral hypoglycemic drugs; Z79.01 Long term (current) use of anticoagulants; J44.9 Chronic obstructive pulmonary disease, unspecified; I50.9 Heart failure, unspecified; E11.9 Type 2 diabetes mellitus without complications; E78.5 Hyperlipidemia, unspecified; M10.9 Gout, unspecified; Z87.891 Personal history of nicotine dependence
CPT/HCPCS: 36415; 71045; 80053; 82550; 83605; 83690; 83880; 84484; 85025; 87040; 93005; 93970; 96374; J1940

== ENCOUNTER 2020-12-23 13:05 | Inpatient (IN) | payer MEDICARE, MEDICAID ==
[2020-12-23 13:48] LABS: #Lymphocytes 0.7 thou/uL (1.20-3.40); #Monocytes 0.7 thou/uL (0.11-0.59); #Neutrophils 7.5 thou/uL (1.40-6.50); %Basophils 0.2 % (0.0-1.0); %Eosinophils 0.1 % (0.0-10.0); %Lymphocytes 7.8 % (21.0-51.0); %Monocytes 7.3 % (0.0-10.0); %Neutrophils 84.6 % (42.0-75.0); Hemoglobin 8.4 g/dL (14.0-18.0); Mean Corpuscular HGB CONC 34.5 g/dL (32.0-36.0); Mean Corpuscular Hemoglobin 33.8 pg (27.0-31.0); Mean Platelet Volume 8.8 fL (7.4-10.4); Platelet Count 121 thou/uL (130-400); Red Blood Cell (RBC) Count 2.49 mill/uL (4.70-6.10); White Blood Cell (WBC) Count 8.8 thou/uL (4.8-10.8)
[2020-12-23] MEDS ORDERED: Aspirin 325 MG TAB ONE (13:53)
[2020-12-23 14:09] LABS: ALT (SGPT) 12 U/L (8-55); AST (SGOT) 27 U/L (5-34); Albumin 3.4 g/dL (3.4-4.8); Alkaline Phosphatase 79 U/L (40-110); Anion Gap 16 mmol/L (10-20); BUN (Urea Nitrogen) 31 mg/dL (8.4-25.7); Bilirubin, Total 0.8 mg/dL (0.2-1.2); Calc. Creatinine Clearance 0 mL/min (70-130); Carbon Dioxide 32 mmol/L (23-31); Chloride 96 mmol/L (98-107); Globulin 4.5 g/dL (2.4-3.5); Glucose 188 mg/dL (83-110); Potassium 3.7 mmol/L (3.5-5.1); Protein, Total 7.9 g/dL (5.8-8.1); Sodium 140 mmol/L (136-145)
[2020-12-23 14:15] LABS: Calcium 5.7 mg/dL (7.8-10.44)
[2020-12-23 14:30] LABS: CKMB 5.4 ng/mL (0-6.6)
[2020-12-23 14:48] LABS: Actual Bicarbonate (HCO3a) 31.9 mEq/L (22-28); Analyzer IN Cardio ER; Base Excess (BEa) 4.9 mEq/L (-2.0 to +3.0); CO2 Tension 57.1 mmHg (35.0-45.0); Calcium, Ionized (arterial) 0.76 mmol/L (1.12-1.30); Carboxyhemoglobin (COHb) 1.1 gm% (0.0-3.0); Hemoglobin (Hb) 14.1 g/dL (14.0-18.0); Potassium - ABG Lab 3.78 mmol/L (3.70-5.30); pH, Arterial 7.37 (7.35-7.45)
[2020-12-23 14:52] LABS: O2 Tension (PaO2), arterial 59.4 mmHg (> 60.0)
[2020-12-23 14:53] LABS: ALV-art Gradient 97.385 mmHg (0-20); Puncture Site RRA
[2020-12-23] MEDS ORDERED: Furosemide 40 MG/4 ML VIAL ONE (15:17)
[2020-12-23] MEDS ORDERED: Calcium Gluc 4.6 MEQ/10 ML (100 MG/ML) ONE (15:17)
[2020-12-23 15:40] LABS: Bacteria/HPF None Seen HPF (None Seen); Bilirubin Negative (Negative); Blood, Urine 2+ (Negative); Clarity Clear (Clear); Glucose, Urine (Dipstick) Normal (Negative); Ketone, Urine Negative (Negative); Leukocyte Negative Leu/uL (Negative); Nitrite Negative (Negative); Protein, Urine (Dipstick) 70 mg/dL (Neg-Trace); RBC/HPF 0-3 HPF (0-3); Specific Gravity, Urine 1.014 (1.002-1.036); Squamous Epithelial 0-3 HPF (0-3); Urobilinogen Normal mg/dL (Less than 2); WBC/HPF 0-3 HPF (0-3)
[2020-12-23] MEDS ORDERED: Calcium Carbonate 500 MG ChewTAB PO PRN (16:34)
[2020-12-23] MEDS ORDERED: Acetaminophen 650 MG Suppository PR PRN (16:34)
[2020-12-23] MEDS ORDERED: Dextrose 5% in Water 1,000 ML IV PRN (16:34)
[2020-12-23] MEDS ORDERED: Dextrose 50% Abboject 50 ML SYRINGE SLOW IVP PRN (16:34)
[2020-12-23] MEDS ORDERED: Acetaminophen 325 MG TAB PO PRN (16:34)
[2020-12-23] MEDS ORDERED: Albuterol Sulfate 2.5 mg/3 ml Neb NEB PRN (17:57)
[2020-12-23 18:17] LABS: Hemoglobin A1c 8.5 % (4.0-6.0)
[2020-12-23 18:21] LABS: Iron 18 ug/dL (65-175); Iron Binding Capacity, Total 228 mcg/dL (261-462); Magnesium 1.1 mg/dL (1.6-2.6); Phosphorus 4.4 mg/dL (2.3-4.7)
[2020-12-23 18:24] LABS: Troponin I 0.059 ng/mL (< 0.028)
[2020-12-23 18:38] LABS: Ferritin 77.19 ng/mL (22-322)
[2020-12-23 18:39] LABS: Vitamin D, 25 Hydroxy 4.4 ng/ml (> 30.0)
[2020-12-23] MEDS: metFORMIN 500 MG TAB PO SCH (18:43)
[2020-12-23] MEDS ORDERED: Furosemide 40 MG/4 ML VIAL SLOW IVP SCH (19:00)
[2020-12-23 20:27] LABS: Troponin I 0.054 ng/mL (< 0.028)
[2020-12-23] MEDS: Haloperidol Lactate 5 MG/ML VIAL IM PRN (20:46)
[2020-12-23] MEDS: Apixaban 2.5 MG TAB PO SCH (20:51)
[2020-12-23] MEDS: Simvastatin 20 MG TAB PO SCH (20:51)
[2020-12-24] MEDS: Furosemide 40 MG/4 ML VIAL SLOW IVP SCH ×2 (05:03→14:37)
[2020-12-24 05:11] LABS: #Lymphocytes 0.9 thou/uL (1.20-3.40); #Monocytes 0.6 thou/uL (0.11-0.59); #Neutrophils 9.8 thou/uL (1.40-6.50); %Eosinophils 0.3 % (0.0-10.0); %Lymphocytes 7.7 % (21.0-51.0); %Monocytes 5.7 % (0.0-10.0); %Neutrophils 86.4 % (42.0-75.0); Hemoglobin 7.9 g/dL (14.0-18.0); Mean Corpuscular Hemoglobin 31.8 pg (27.0-31.0); Mean Corpuscular Volume 99.4 fL (78.0-98.0); Platelet Count 132 thou/uL (130-400); Red Blood Cell (RBC) Count 2.48 mill/uL (4.70-6.10); White Blood Cell (WBC) Count 11.3 thou/uL (4.8-10.8)
[2020-12-24 05:40] LABS: Anion Gap 15 mmol/L (10-20); BUN (Urea Nitrogen) 32 mg/dL (8.4-25.7); Calc. Creatinine Clearance 35 mL/min (70-130); Carbon Dioxide 34 mmol/L (23-31); Chloride 98 mmol/L (98-107); Glucose 118 mg/dL (83-110); Potassium 3.6 mmol/L (3.5-5.1); Sodium 143 mmol/L (136-145)
[2020-12-24] MEDS ORDERED: Magnesium 2 GM/50 ML 2 GM in Premix Bag 1 BAG IVPB SCH (05:45)
[2020-12-24] MEDS ORDERED: cefTRIAXone Sodium 1 MG in Syringe 0 ML IVPB SCH (08:45)
[2020-12-24] MEDS ORDERED: FLU VACC QS2021-22(65YR UP)/PF 240 MCG/0.7 ML SYRINGE IM ONE (09:00)
[2020-12-24] MEDS: Amlodipine 10 MG TAB PO SCH (09:05)
[2020-12-24] MEDS: Allopurinol 100 MG TAB PO SCH (09:05)
[2020-12-24] MEDS: metFORMIN 500 MG TAB PO SCH ×2 (09:05→17:19)
[2020-12-24] MEDS: Potassium Chloride 10 MEQ TAB PO SCH (09:05)
[2020-12-24] MEDS: Apixaban 2.5 MG TAB PO SCH ×2 (09:05→20:25)
[2020-12-24] MEDS: cefTRIAXone\\ROCEPHIN 1 GM in Sodium Chloride 0.9% 100 ML IVPB SCH (11:36)
[2020-12-24 13:31] LABS: SARS-CoV-2 PCR by NAA Not Detected (NotDetected)
[2020-12-24] MEDS: Simvastatin 20 MG TAB PO SCH (20:24)
[2020-12-25] MEDS: diphenhydrAMINE 25 MG in Sodium Chloride 0.9% 50 ML IVPB PRN (00:45)
[2020-12-25] MEDS: Haloperidol Lactate 5 MG/ML VIAL IM PRN (01:02)
[2020-12-25] MEDS ORDERED: Haloperidol Lactate 5 MG/ML VIAL IM SCH (02:00)
[2020-12-25] MEDS: Furosemide 40 MG/4 ML VIAL SLOW IVP SCH ×2 (06:11→15:57)
[2020-12-25] MEDS ORDERED: Ferrous Sulfate 325 MG TAB PO SCH (08:00)
[2020-12-25] MEDS: Apixaban 2.5 MG TAB PO SCH (08:57)
[2020-12-25] MEDS: metFORMIN 500 MG TAB PO SCH ×2 (08:58→18:19)
[2020-12-25] MEDS: Amlodipine 10 MG TAB PO SCH (08:58)
[2020-12-25] MEDS: Calcium Carbonate 600 MG + Vit D TAB PO SCH (08:58)
[2020-12-25] MEDS: Allopurinol 100 MG TAB PO SCH (08:58)
[2020-12-25] MEDS: Potassium Chloride 10 MEQ TAB PO SCH (08:58)
[2020-12-25] MEDS: cefTRIAXone\\ROCEPHIN 1 GM in Sodium Chloride 0.9% 100 ML IVPB SCH (09:13)
[2020-12-25 10:57] LABS: #Lymphocytes 0.8 thou/uL (1.20-3.40); #Monocytes 0.5 thou/uL (0.11-0.59); #Neutrophils 11.8 thou/uL (1.40-6.50); %Eosinophils 0.1 % (0.0-10.0); %Lymphocytes 6.3 % (21.0-51.0); %Neutrophils 89.7 % (42.0-75.0); Hemoglobin 8.4 g/dL (14.0-18.0); Mean Corpuscular HGB CONC 32.4 g/dL (32.0-36.0); Mean Corpuscular Hemoglobin 31.9 pg (27.0-31.0); Mean Corpuscular Volume 98.5 fL (78.0-98.0); Mean Platelet Volume 8.6 fL (7.4-10.4); Platelet Count 158 thou/uL (130-400); Red Blood Cell (RBC) Count 2.62 mill/uL (4.70-6.10); White Blood Cell (WBC) Count 13.1 thou/uL (4.8-10.8)
[2020-12-25 11:41] LABS: Anion Gap 19 mmol/L (10-20); BUN (Urea Nitrogen) 35 mg/dL (8.4-25.7); Calc. Creatinine Clearance 33 mL/min (70-130); Carbon Dioxide 27 mmol/L (23-31); Chloride 99 mmol/L (98-107); Glucose 170 mg/dL (83-110); Magnesium 1.2 mg/dL (1.6-2.6); Phosphorus 3.8 mg/dL (2.3-4.7); Potassium 4.1 mmol/L (3.5-5.1); Sodium 141 mmol/L (136-145)
[2020-12-25] MEDS ORDERED: predniSONE 20 MG TAB PO SCH (12:00)
[2020-12-25] MEDS ORDERED: Diltiazem 125 MG in Sodium Chloride 0.9% 100 ML IVPB SCH (14:45)
[2020-12-25] MEDS: HumaLOG 300 UNITS/3 ML VIAL SC PRN ×2 (18:19→21:12)
[2020-12-25] MEDS: Simvastatin 20 MG TAB PO SCH (21:11)
[2020-12-26] MEDS ORDERED: Magnesium Sulfate 2 GM in Sodium Chloride 0.9% 100 ML IVPB SCH (06:30)
[2020-12-26] MEDS: HumaLOG 300 UNITS/3 ML VIAL SC PRN (06:33)
[2020-12-26] MEDS: Furosemide 40 MG/4 ML VIAL SLOW IVP SCH ×2 (06:33→15:39)
[2020-12-26] MEDS ORDERED: Magnesium 2 GM/50 ML 2 GM in Premix Bag 1 BAG IVPB SCH (06:45)
[2020-12-26] MEDS: Calcium Carbonate 600 MG + Vit D TAB PO SCH ×3 (08:37→09:32)
[2020-12-26] MEDS: metFORMIN 500 MG TAB PO SCH ×3 (08:37→09:32)
[2020-12-26] MEDS: Allopurinol 100 MG TAB PO SCH ×3 (08:38→09:32)
[2020-12-26] MEDS: Potassium Chloride 10 MEQ TAB PO SCH ×3 (08:38→09:33)
[2020-12-26] MEDS: Ferrous Sulfate 325 MG TAB PO SCH ×3 (08:41→09:33)
[2020-12-26] MEDS: Apixaban 2.5 MG TAB PO SCH ×4 (08:41→20:26)
[2020-12-26 09:31] LABS: Hemoglobin 8.4 g/dL (14.0-18.0); Mean Corpuscular HGB CONC 31.7 g/dL (32.0-36.0); Mean Corpuscular Hemoglobin 31.3 pg (27.0-31.0); Mean Corpuscular Volume 98.8 fL (78.0-98.0); Mean Platelet Volume 9.4 fL (7.4-10.4); Platelet Count 172 thou/uL (130-400); RBC Distribution Width 15.7 % (11.5-14.5); Red Blood Cell (RBC) Count 2.68 mill/uL (4.70-6.10); White Blood Cell (WBC) Count 13.6 thou/uL (4.8-10.8)
[2020-12-26 09:45] LABS: Anion Gap 17 mmol/L (10-20); BUN (Urea Nitrogen) 41 mg/dL (8.4-25.7); Calc. Creatinine Clearance 32 mL/min (70-130); Calcium 6.2 mg/dL (7.8-10.44); Carbon Dioxide 32 mmol/L (23-31); Chloride 99 mmol/L (98-107); Glucose 147 mg/dL (83-110); Potassium 3.8 mmol/L (3.5-5.1); Sodium 144 mmol/L (136-145)
[2020-12-26 10:00] LABS: Band 2 % (5-11); Lymphocytes 6 % (21-51); MDiff Complete? YES; Monocytes 3 % (0-10); Neutrophil 89 % (42-75); Platelet Morphology Comment Appears Adequate; Polychromasia SLIGHT = 2-3 cells (100X) (0-2/hpf)
[2020-12-26] MEDS: cefTRIAXone\\ROCEPHIN 1 GM in Sodium Chloride 0.9% 100 ML IVPB SCH (11:01)
[2020-12-26] MEDS: Diltiazem 125 MG in Sodium Chloride 0.9% 100 ML IVPB SCH (20:25)
[2020-12-26] MEDS: Simvastatin 20 MG TAB PO SCH (20:26)
[2020-12-27] MEDS: Haloperidol Lactate 5 MG/ML VIAL IM PRN ×5 (00:34→12:03)
[2020-12-27 07:32] LABS: #Eosinphils 0.1 thou/uL (0.0-0.7); #Lymphocytes 0.5 thou/uL (1.20-3.40); #Monocytes 0.5 thou/uL (0.11-0.59); #Neutrophils 8.8 thou/uL (1.40-6.50); %Basophils 0.1 % (0.0-1.0); %Eosinophils 0.5 % (0.0-10.0); %Lymphocytes 5.5 % (21.0-51.0); %Monocytes 4.9 % (0.0-10.0); %Neutrophils 89.1 % (42.0-75.0); Hemoglobin 8.5 g/dL (14.0-18.0); Mean Corpuscular HGB CONC 32.8 g/dL (32.0-36.0); Mean Corpuscular Hemoglobin 32.6 pg (27.0-31.0); Mean Corpuscular Volume 99.4 fL (78.0-98.0); Mean Platelet Volume 8.6 fL (7.4-10.4); Platelet Count 172 thou/uL (130-400); RBC Distribution Width 15.9 % (11.5-14.5); White Blood Cell (WBC) Count 9.9 thou/uL (4.8-10.8)
[2020-12-27] MEDS: Allopurinol 100 MG TAB PO SCH (08:08)
[2020-12-27] MEDS: Ferrous Sulfate 325 MG TAB PO SCH (08:08)
[2020-12-27] MEDS: Calcium Carbonate 600 MG + Vit D TAB PO SCH (08:08)
[2020-12-27] MEDS: Potassium Chloride 10 MEQ TAB PO SCH (08:09)
[2020-12-27] MEDS: Apixaban 2.5 MG TAB PO SCH ×2 (08:09→21:04)
[2020-12-27 08:29] LABS: Anion Gap 24 mmol/L (10-20); BUN (Urea Nitrogen) 46 mg/dL (8.4-25.7); Calc. Creatinine Clearance 32 mL/min (70-130); Calcium 6.5 mg/dL (7.8-10.44); Carbon Dioxide 26 mmol/L (23-31); Chloride 100 mmol/L (98-107); Glucose 196 mg/dL (83-110); Magnesium 1.5 mg/dL (1.6-2.6); Potassium 3.7 mmol/L (3.5-5.1); Sodium 146 mmol/L (136-145)
[2020-12-27] MEDS ORDERED: Magnesium Sulfate 2 GM in Sodium Chloride 0.9% 100 ML IVPB SCH (08:45)
[2020-12-27] MEDS ORDERED: Magnesium 2 GM/50 ML 2 GM in Premix Bag 1 BAG IVPB SCH (09:00)
[2020-12-27] MEDS ORDERED: Furosemide 40 MG/4 ML VIAL SLOW IVP SCH (09:00)
[2020-12-27] MEDS: Calcium Carbonate 500 MG ChewTAB PO SCH ×2 (10:56→21:04)
[2020-12-27] MEDS: diphenhydrAMINE 25 MG in Sodium Chloride 0.9% 50 ML IVPB PRN (13:16)
[2020-12-27] MEDS: cefTRIAXone\\ROCEPHIN 1 GM in Sodium Chloride 0.9% 100 ML IVPB SCH (13:40)
[2020-12-27] MEDS: Lorazepam 2 MG/ML VIAL SLOW IVP PRN ×2 (14:41→18:29)
[2020-12-27] MEDS: Diltiazem 125 MG in Sodium Chloride 0.9% 100 ML IVPB SCH (14:42)
[2020-12-27] MEDS: HumaLOG 300 UNITS/3 ML VIAL SC PRN (17:51)
[2020-12-27] MEDS: Budesonide 0.25 MG/2 ML NEB INH SCH (19:11)
[2020-12-27] MEDS: Simvastatin 20 MG TAB PO SCH (21:04)
[2020-12-27] MEDS: risperiDONE 0.25 MG TAB PO SCH (21:04)
[2020-12-28] MEDS: Diltiazem 125 MG in Sodium Chloride 0.9% 100 ML IVPB SCH ×2 (02:52→12:45)
[2020-12-28 05:10] LABS: #Eosinphils 0.1 thou/uL (0.0-0.7); #Lymphocytes 0.7 thou/uL (1.20-3.40); #Monocytes 0.5 thou/uL (0.11-0.59); #Neutrophils 6.4 thou/uL (1.40-6.50); %Basophils 0.3 % (0.0-1.0); %Eosinophils 1.2 % (0.0-10.0); %Lymphocytes 8.5 % (21.0-51.0); %Monocytes 6.5 % (0.0-10.0); %Neutrophils 83.5 % (42.0-75.0); Hemoglobin 7.7 g/dL (14.0-18.0); Mean Corpuscular HGB CONC 32.6 g/dL (32.0-36.0); Mean Corpuscular Hemoglobin 32.1 pg (27.0-31.0); Mean Corpuscular Volume 98.6 fL (78.0-98.0); Mean Platelet Volume 8.8 fL (7.4-10.4); Platelet Count 182 thou/uL (130-400); Red Blood Cell (RBC) Count 2.39 mill/uL (4.70-6.10); White Blood Cell (WBC) Count 7.7 thou/uL (4.8-10.8)
[2020-12-28 05:24] LABS: Anion Gap 18 mmol/L (10-20); BUN (Urea Nitrogen) 41 mg/dL (8.4-25.7); Calc. Creatinine Clearance 34 mL/min (70-130); Calcium 6.6 mg/dL (7.8-10.44); Carbon Dioxide 31 mmol/L (23-31); Chloride 103 mmol/L (98-107); Glucose 179 mg/dL (83-110); Potassium 3.6 mmol/L (3.5-5.1); Sodium 148 mmol/L (136-145)
[2020-12-28 06:16] LABS: Phosphorus 3.9 mg/dL (2.3-4.7)
[2020-12-28 06:18] LABS: Magnesium 1.8 mg/dL (1.6-2.6)
[2020-12-28] MEDS: Budesonide 0.25 MG/2 ML NEB INH SCH ×2 (07:28→18:57)
[2020-12-28] MEDS ORDERED: Epoetin (ESRD) 20,000 UNITS/ML SC SCH (09:00)
[2020-12-28] MEDS: Potassium Chloride 10 MEQ TAB PO SCH (09:26)
[2020-12-28] MEDS: Calcium Carbonate 600 MG + Vit D TAB PO SCH (09:26)
[2020-12-28] MEDS: Calcium Carbonate 500 MG ChewTAB PO SCH ×2 (09:27→20:51)
[2020-12-28] MEDS: Allopurinol 100 MG TAB PO SCH (09:27)
[2020-12-28] MEDS: Apixaban 2.5 MG TAB PO SCH ×2 (09:27→20:51)
[2020-12-28] MEDS: Ferrous Sulfate 325 MG TAB PO SCH (09:27)
[2020-12-28] MEDS: cefTRIAXone\\ROCEPHIN 1 GM in Sodium Chloride 0.9% 100 ML IVPB SCH (09:28)
[2020-12-28] MEDS ORDERED: Magnesium 2 GM/50 ML 2 GM in Premix Bag 1 BAG IVPB SCH (10:00)
[2020-12-28] MEDS: HumaLOG 300 UNITS/3 ML VIAL SC PRN ×2 (11:55→16:38)
[2020-12-28] MEDS ORDERED: EPOETIN ALFA-EPBX (ESRD) 4,000 UNIT/ML VIAL SC SCH (12:00)
[2020-12-28] MEDS: risperiDONE 0.25 MG TAB PO SCH (20:51)
[2020-12-28] MEDS: Simvastatin 20 MG TAB PO SCH (20:52)
[2020-12-29 04:57] LABS: #Eosinphils 0.1 thou/uL (0.0-0.7); #Lymphocytes 0.7 thou/uL (1.20-3.40); #Monocytes 0.6 thou/uL (0.11-0.59); #Neutrophils 6.4 thou/uL (1.40-6.50); %Basophils 0.1 % (0.0-1.0); %Eosinophils 1.4 % (0.0-10.0); %Lymphocytes 8.7 % (21.0-51.0); %Monocytes 7.4 % (0.0-10.0); %Neutrophils 82.4 % (42.0-75.0); Hemoglobin 7.8 g/dL (14.0-18.0); Mean Corpuscular HGB CONC 32.1 g/dL (32.0-36.0); Mean Corpuscular Hemoglobin 32.2 pg (27.0-31.0); Mean Platelet Volume 8.7 fL (7.4-10.4); Platelet Count 170 thou/uL (130-400); RBC Distribution Width 15.9 % (11.5-14.5); Red Blood Cell (RBC) Count 2.42 mill/uL (4.70-6.10); White Blood Cell (WBC) Count 7.7 thou/uL (4.8-10.8)
[2020-12-29 05:36] LABS: Anion Gap 15 mmol/L (10-20); BUN (Urea Nitrogen) 35 mg/dL (8.4-25.7); Calc. Creatinine Clearance 36 mL/min (70-130); Calcium 7.1 mg/dL (7.8-10.44); Carbon Dioxide 34 mmol/L (23-31); Chloride 107 mmol/L (98-107); Glucose 196 mg/dL (83-110); Magnesium 2.1 mg/dL (1.6-2.6); Potassium 3.8 mmol/L (3.5-5.1); Sodium 152 mmol/L (136-145)
[2020-12-29] MEDS: Diltiazem 125 MG in Sodium Chloride 0.9% 100 ML IVPB SCH (05:44)
[2020-12-29] MEDS: HumaLOG 300 UNITS/3 ML VIAL SC PRN ×4 (06:17→21:55)
[2020-12-29] MEDS: Budesonide 0.25 MG/2 ML NEB INH SCH ×2 (08:12→19:25)
[2020-12-29] MEDS: Calcium Carbonate 500 MG ChewTAB PO SCH ×2 (08:25→22:20)
[2020-12-29] MEDS: Apixaban 2.5 MG TAB PO SCH ×2 (08:26→22:00)
[2020-12-29] MEDS: Potassium Chloride 10 MEQ TAB PO SCH (08:26)
[2020-12-29] MEDS: Ferrous Sulfate 325 MG TAB PO SCH (08:26)
[2020-12-29] MEDS: Allopurinol 100 MG TAB PO SCH (08:26)
[2020-12-29] MEDS: Calcium Carbonate 600 MG + Vit D TAB PO SCH (08:26)
[2020-12-29] MEDS: Sodium Chloride 0.45% 1,000 ML IV SCH ×2 (08:34→22:39)
[2020-12-29] MEDS ORDERED: Polyethylene Glycol 3350 17 GM Packet PO PRN (14:02)
[2020-12-29] MEDS: Simvastatin 20 MG TAB PO SCH (22:00)
[2020-12-29] MEDS: risperiDONE 0.25 MG TAB PO SCH (22:00)
[2020-12-29] MEDS: Diltiazem HCl SR 60 mg Capsule PO SCH (22:17)
[2020-12-30] MEDS ORDERED: Diltiazem 125 MG in Sodium Chloride 0.9% 100 ML IVPB SCH (04:15)
[2020-12-30 05:24] LABS: #Basophils 0.1 thou/uL (0.0-0.2); #Eosinphils 0.2 thou/uL (0.0-0.7); #Lymphocytes 0.7 thou/uL (1.20-3.40); #Monocytes 0.5 thou/uL (0.11-0.59); #Neutrophils 6.6 thou/uL (1.40-6.50); %Basophils 0.7 % (0.0-1.0); %Eosinophils 2.2 % (0.0-10.0); %Lymphocytes 8.2 % (21.0-51.0); %Monocytes 6.4 % (0.0-10.0); %Neutrophils 82.5 % (42.0-75.0); Hemoglobin 8.6 g/dL (14.0-18.0); Mean Corpuscular HGB CONC 31.9 g/dL (32.0-36.0); Mean Corpuscular Hemoglobin 32.2 pg (27.0-31.0); Mean Platelet Volume 8.4 fL (7.4-10.4); Platelet Count 157 thou/uL (130-400); RBC Distribution Width 15.9 % (11.5-14.5); Red Blood Cell (RBC) Count 2.69 mill/uL (4.70-6.10)
[2020-12-30 05:51] LABS: Anion Gap 18 mmol/L (10-20); BUN (Urea Nitrogen) 27 mg/dL (8.4-25.7); Calc. Creatinine Clearance 43 mL/min (70-130); Calcium 7.6 mg/dL (7.8-10.44); Carbon Dioxide 32 mmol/L (23-31); Chloride 106 mmol/L (98-107); Glucose 184 mg/dL (83-110); Potassium 3.6 mmol/L (3.5-5.1); Sodium 152 mmol/L (136-145)
[2020-12-30] MEDS: Budesonide 0.25 MG/2 ML NEB INH SCH ×2 (07:56→18:25)
[2020-12-30] MEDS: Apixaban 2.5 MG TAB PO SCH ×2 (09:34→20:53)
[2020-12-30] MEDS: Diltiazem HCl SR 60 mg Capsule PO SCH ×2 (09:34→20:54)
[2020-12-30] MEDS: Calcium Carbonate 500 MG ChewTAB PO SCH ×2 (09:34→21:20)
[2020-12-30] MEDS: Allopurinol 100 MG TAB PO SCH (09:35)
[2020-12-30] MEDS: Potassium Chloride 10 MEQ TAB PO SCH (09:36)
[2020-12-30] MEDS: Calcium Carbonate 600 MG + Vit D TAB PO SCH (09:36)
[2020-12-30] MEDS: Ferrous Sulfate 325 MG TAB PO SCH (09:36)
[2020-12-30] MEDS: Dextrose 5% in Water 1,000 ML IV SCH (11:07)
[2020-12-30] MEDS: HumaLOG 300 UNITS/3 ML VIAL SC PRN ×2 (11:13→17:52)
[2020-12-30] MEDS: risperiDONE 0.25 MG TAB PO SCH (20:54)
[2020-12-30] MEDS: Simvastatin 20 MG TAB PO SCH (21:20)
[2020-12-31] MEDS: Lorazepam 2 MG/ML VIAL SLOW IVP PRN (00:44)
[2020-12-31] MEDS: Dextrose 5% in Water 1,000 ML IV SCH ×3 (00:45→20:17)
[2020-12-31] MEDS: HumaLOG 300 UNITS/3 ML VIAL SC PRN ×2 (06:36→17:05)
[2020-12-31] MEDS: Budesonide 0.25 MG/2 ML NEB INH SCH ×2 (07:48→18:43)
[2020-12-31] MEDS: Ferrous Sulfate 325 MG TAB PO SCH (09:12)
[2020-12-31] MEDS: Potassium Chloride 10 MEQ TAB PO SCH ×2 (09:12→17:05)
[2020-12-31] MEDS: Diltiazem HCl SR 60 mg Capsule PO SCH ×2 (09:12→19:59)
[2020-12-31] MEDS: Calcitriol 0.25 MCG CAP PO SCH (09:12)
[2020-12-31] MEDS: Calcium Carbonate 600 MG + Vit D TAB PO SCH (09:12)
[2020-12-31] MEDS: Apixaban 2.5 MG TAB PO SCH ×2 (09:13→19:59)
[2020-12-31] MEDS: Calcium Carbonate 500 MG ChewTAB PO SCH ×2 (09:18→21:42)
[2020-12-31] MEDS: Allopurinol 100 MG TAB PO SCH (09:18)
[2020-12-31 14:02] LABS: Anion Gap 15 mmol/L (10-20); BUN (Urea Nitrogen) 20 mg/dL (8.4-25.7); Calc. Creatinine Clearance 47 mL/min (70-130); Calcium 8.3 mg/dL (7.8-10.44); Carbon Dioxide 31 mmol/L (23-31); Chloride 104 mmol/L (98-107); Glucose 234 mg/dL (83-110); Potassium 3.4 mmol/L (3.5-5.1); Sodium 147 mmol/L (136-145)
[2020-12-31] MEDS: risperiDONE 1 MG TAB PO SCH (20:00)
[2020-12-31] MEDS: Simvastatin 20 MG TAB PO SCH (21:42)
[2021-01-01] MEDS: Lorazepam 2 MG/ML VIAL SLOW IVP PRN ×2 (00:35→20:39)
[2021-01-01] MEDS: HumaLOG 300 UNITS/3 ML VIAL SC PRN ×3 (05:52→17:51)
[2021-01-01] MEDS: Dextrose 5% in Water 1,000 ML IV SCH ×2 (06:29→18:18)
[2021-01-01] MEDS: Budesonide 0.25 MG/2 ML NEB INH SCH ×2 (07:24→18:36)
[2021-01-01 07:41] LABS: Anion Gap 17 mmol/L (10-20); BUN (Urea Nitrogen) 19 mg/dL (8.4-25.7); Calc. Creatinine Clearance 46 mL/min (70-130); Calcium 8.5 mg/dL (7.8-10.44); Carbon Dioxide 28 mmol/L (23-31); Chloride 104 mmol/L (98-107); Glucose 215 mg/dL (83-110); Potassium 3.9 mmol/L (3.5-5.1); Sodium 145 mmol/L (136-145)
[2021-01-01 07:44] LABS: Hemoglobin 8.7 g/dL (14.0-18.0); Mean Corpuscular HGB CONC 32.2 g/dL (32.0-36.0); Mean Corpuscular Hemoglobin 31.9 pg (27.0-31.0); Mean Corpuscular Volume 99.1 fL (78.0-98.0); Red Blood Cell (RBC) Count 2.72 mill/uL (4.70-6.10); White Blood Cell (WBC) Count 6.4 thou/uL (4.8-10.8)
[2021-01-01 08:28] LABS: #Eosinphils 0.2 thou/uL (0.0-0.7); #Lymphocytes 0.8 thou/uL (1.20-3.40); #Monocytes 0.4 thou/uL (0.11-0.59); %Basophils 0.3 % (0.0-1.0); %Eosinophils 3.7 % (0.0-10.0); %Lymphocytes 12.1 % (21.0-51.0); %Neutrophils 77.9 % (42.0-75.0); Anisocytosis SLIGHT = 6-15 cells (100X) (0-5/hpf); MDiff Complete? YES; Mean Platelet Volume 9.6 fL (7.4-10.4); Platelet Count 140 thou/uL (130-400); Platelet Morphology Comment Appears Adequate; Polychromasia SLIGHT = 2-3 cells (100X) (0-2/hpf); RBC Distribution Width 15.7 % (11.5-14.5)
[2021-01-01] MEDS: Calcium Carbonate 600 MG + Vit D TAB PO SCH (09:21)
[2021-01-01] MEDS: Potassium Chloride 10 MEQ TAB PO SCH ×2 (09:21→17:51)
[2021-01-01] MEDS: Ferrous Sulfate 325 MG TAB PO SCH (09:21)
[2021-01-01] MEDS: Diltiazem HCl SR 60 mg Capsule PO SCH ×2 (09:21→20:40)
[2021-01-01] MEDS: Allopurinol 100 MG TAB PO SCH (09:22)
[2021-01-01] MEDS: Calcium Carbonate 500 MG ChewTAB PO SCH ×2 (09:22→20:41)
[2021-01-01] MEDS: Calcitriol 0.25 MCG CAP PO SCH (09:22)
[2021-01-01] MEDS: Apixaban 2.5 MG TAB PO SCH ×2 (09:22→20:40)
[2021-01-01 17:03] LABS: SARS-CoV-2 PCR by NAA Not Detected (NotDetected)
[2021-01-01] MEDS: Simvastatin 20 MG TAB PO SCH (20:40)
[2021-01-01] MEDS: risperiDONE 1 MG TAB PO SCH (20:40)
[2021-01-01] MEDS: Metoprolol Tartrate 25 MG TAB PO SCH (20:41)
[2021-01-02] MEDS: Dextrose 5% in Water 1,000 ML IV SCH ×2 (04:08→18:37)
[2021-01-02] MEDS: HumaLOG 300 UNITS/3 ML VIAL SC PRN (05:35)
[2021-01-02] MEDS ORDERED: Insulin Regular 300 UNITS/3 ML VIAL ONE (06:20)
[2021-01-02] MEDS: Budesonide 0.25 MG/2 ML NEB INH SCH ×2 (07:44→18:35)
[2021-01-02] MEDS: Metoprolol Tartrate 25 MG TAB PO SCH (08:51)
[2021-01-02] MEDS: Allopurinol 100 MG TAB PO SCH (08:51)
[2021-01-02] MEDS: Apixaban 2.5 MG TAB PO SCH ×2 (08:51→21:09)
[2021-01-02] MEDS: Calcium Carbonate 600 MG + Vit D TAB PO SCH (08:51)
[2021-01-02] MEDS: Calcitriol 0.25 MCG CAP PO SCH (08:51)
[2021-01-02] MEDS: Ferrous Sulfate 325 MG TAB PO SCH (08:52)
[2021-01-02] MEDS: Diltiazem HCl SR 60 mg Capsule PO SCH ×2 (08:52→21:09)
[2021-01-02] MEDS: Potassium Chloride 10 MEQ TAB PO SCH ×2 (08:52→18:37)
[2021-01-02] MEDS: Calcium Carbonate 500 MG ChewTAB PO SCH ×2 (09:02→21:12)
[2021-01-02 09:32] LABS: Anion Gap 14 mmol/L (10-20); BUN (Urea Nitrogen) 21 mg/dL (8.4-25.7); Calc. Creatinine Clearance 41 mL/min (70-130); Calcium 8.6 mg/dL (7.8-10.44); Carbon Dioxide 33 mmol/L (23-31); Chloride 102 mmol/L (98-107); Glucose 157 mg/dL (83-110); Potassium 3.6 mmol/L (3.5-5.1); Sodium 145 mmol/L (136-145)
[2021-01-02 09:59] LABS: Eosinophils 4 % (0-10); Hemoglobin 8.3 g/dL (14.0-18.0); Lymphocytes 17 % (21-51); MDiff Complete? YES; Mean Corpuscular HGB CONC 33.7 g/dL (32.0-36.0); Mean Corpuscular Hemoglobin 33.7 pg (27.0-31.0); Mean Platelet Volume 9.7 fL (7.4-10.4); Monocytes 7 % (0-10); Neutrophil 70 % (42-75); Platelet Count 96 thou/uL (130-400); Platelet Morphology Comment Appears Decreased; Polychromasia SLIGHT = 2-3 cells (100X) (0-2/hpf); Red Blood Cell (RBC) Count 2.46 mill/uL (4.70-6.10); White Blood Cell (WBC) Count 7.3 thou/uL (4.8-10.8)
[2021-01-02] MEDS: Lorazepam 2 MG/ML VIAL SLOW IVP PRN (10:44)
[2021-01-02] MEDS: Simvastatin 20 MG TAB PO SCH (21:09)
[2021-01-02] MEDS: risperiDONE 1 MG TAB PO SCH (21:09)
[2021-01-03 05:18] LABS: #Eosinphils 0.4 thou/uL (0.0-0.7); #Monocytes 0.4 thou/uL (0.11-0.59); #Neutrophils 3.9 thou/uL (1.40-6.50); %Basophils 0.5 % (0.0-1.0); %Eosinophils 6.6 % (0.0-10.0); %Lymphocytes 17.9 % (21.0-51.0); %Monocytes 7.6 % (0.0-10.0); %Neutrophils 67.5 % (42.0-75.0); Hemoglobin 7.8 g/dL (14.0-18.0); Mean Corpuscular HGB CONC 33.2 g/dL (32.0-36.0); Mean Corpuscular Volume 99.3 fL (78.0-98.0); Mean Platelet Volume 9.5 fL (7.4-10.4); Platelet Count 93 thou/uL (130-400); RBC Distribution Width 15.7 % (11.5-14.5); Red Blood Cell (RBC) Count 2.38 mill/uL (4.70-6.10); White Blood Cell (WBC) Count 5.8 thou/uL (4.8-10.8)
[2021-01-03 05:39] LABS: BUN (Urea Nitrogen) 18 mg/dL (8.4-25.7); Calc. Creatinine Clearance 42 mL/min (70-130); Calcium 8.7 mg/dL (7.8-10.44); Carbon Dioxide 31 mmol/L (23-31); Chloride 101 mmol/L (98-107); Glucose 191 mg/dL (83-110); Potassium 3.6 mmol/L (3.5-5.1); Sodium 142 mmol/L (136-145)
[2021-01-03 05:49] LABS: Anion Gap 16 mmol/L (10-20)
[2021-01-03] MEDS: Budesonide 0.25 MG/2 ML NEB INH SCH ×2 (07:42→18:50)
[2021-01-03] MEDS: Potassium Chloride 10 MEQ TAB PO SCH ×2 (08:51→16:19)
[2021-01-03] MEDS: Diltiazem HCl SR 60 mg Capsule PO SCH (08:51)
[2021-01-03] MEDS: Dextrose 5% in Water 1,000 ML IV SCH (08:51)
[2021-01-03] MEDS: Allopurinol 100 MG TAB PO SCH (08:52)
[2021-01-03] MEDS: Apixaban 2.5 MG TAB PO SCH (08:52)
[2021-01-03] MEDS: Calcium Carbonate 600 MG + Vit D TAB PO SCH (08:52)
[2021-01-03] MEDS: Ferrous Sulfate 325 MG TAB PO SCH (08:52)
[2021-01-03] MEDS: Calcitriol 0.25 MCG CAP PO SCH (08:52)
[2021-01-03] MEDS: Calcium Carbonate 500 MG ChewTAB PO SCH (08:52)
[2021-01-03 15:12] VITALS: BMI 35.2
[2021-01-03] MEDS: HumaLOG 300 UNITS/3 ML VIAL SC PRN (17:06)
[2021-01-03 20:23] VITALS: BP 157/79; TEMP 97.7
== END 2021-01-03 20:05 | DRG 193 ==
LOC: ERS 13:05 → 2NO 16:32
PROVIDERS: ADMIT Family Medicine; ATTEND Family Medicine
DX: J18.9 Pneumonia, unspecified organism (principal); I50.33 Acute on chronic diastolic (congestive) heart failure; J96.01 Acute respiratory failure with hypoxia; G93.41 Metabolic encephalopathy; I13.0 Hypertensive heart and chronic kidney disease with heart failure and stage 1 through stage 4 chronic kidney disease, or unspecified chronic kidney disease; N17.9 Acute kidney failure, unspecified; N18.4 Chronic kidney disease, stage 4 (severe); E87.3 Alkalosis; E87.0 Hyperosmolality and hypernatremia; J44.0 Chronic obstructive pulmonary disease with (acute) lower respiratory infection; N25.81 Secondary hyperparathyroidism of renal origin; I48.20 Chronic atrial fibrillation, unspecified; F05 Delirium due to known physiological condition; Z20.822 Contact with and (suspected) exposure to COVID-19; D63.1 Anemia in chronic kidney disease; E11.21 Type 2 diabetes mellitus with diabetic nephropathy; E11.22 Type 2 diabetes mellitus with diabetic chronic kidney disease; R13.10 Dysphagia, unspecified; E83.51 Hypocalcemia; E78.5 Hyperlipidemia, unspecified; M10.9 Gout, unspecified; Z51.5 Encounter for palliative care; R00.1 Bradycardia, unspecified; E83.42 Hypomagnesemia; G30.9 Alzheimer's disease, unspecified; F02.80 Dementia in other diseases classified elsewhere, unspecified severity, without behavioral disturbance, psychotic disturbance, mood disturbance, and anxiety; Z79.899 Other long term (current) drug therapy; Z79.01 Long term (current) use of anticoagulants; Z79.84 Long term (current) use of oral hypoglycemic drugs; Z87.891 Personal history of nicotine dependence
CPT/HCPCS: 36415; 36416; 36600; 51702; 71045; 80048; 80053; 81003; 81015; 82306; 82553; 82728; 82805; 83036; 83540; 83550; 83605; 83735; 83880; 83970; 84100; 84484; 85025; 87040; 87086; 93005; 93010; 93306; 93970; 94640; 94760; 96365; J0696; J1200; J1630; J1815; J1940; J2001; J2060; J3475; J3490; J7070; J7512; J7611; J7620; J7626; Q5105; U0003; U0005

== ENCOUNTER 2021-01-04 03:14 | Inpatient (IN) | payer MEDICARE, MEDICAID ==
[2021-01-04] MEDS ORDERED: Acetaminophen 325 MG TAB PO PRN (04:17)
[2021-01-04 04:38] LABS: Bacteria/HPF None Seen HPF (None Seen); Bilirubin Negative (Negative); Blood, Urine 3+ (Negative); Clarity Clear (Clear); Glucose, Urine (Dipstick) Normal (Negative); Ketone, Urine Negative (Negative); Leukocyte 75 Leu/uL (Negative); Nitrite Negative (Negative); Protein, Urine (Dipstick) 100 mg/dL (Neg-Trace); RBC/HPF 21-50 HPF (0-3); Specific Gravity, Urine 1.016 (1.002-1.036); Squamous Epithelial None Seen HPF (0-3); Urobilinogen Normal mg/dL (Less than 2)
[2021-01-04 04:41] LABS: Actual Bicarbonate (HCO3v) 31 mEq/L (22-28); Analyzer IN Cardio ER; Base Excess 7.1 mEq/L (-2.0 to +3.0); Calcium, Ionized (venous) 1.08 mmol/L (1.16-1.32); Chloride (VBG) 102 mmol/L (98-106); Hemoglobin (Hb) 8.4 g/dL (12.6-17.4); Potassium (VBG) 3.73 mmol/L (3.70-5.30); Sodium 139.7 mmol/L (133-146); pH (venous) 7.52 (7.32-7.43)
[2021-01-04 04:43] LABS: #Eosinphils 0.3 thou/uL (0.0-0.7); #Lymphocytes 1.1 thou/uL (1.20-3.40); #Monocytes 0.6 thou/uL (0.11-0.59); #Neutrophils 4.4 thou/uL (1.40-6.50); %Basophils 0.2 % (0.0-1.0); %Eosinophils 4.2 % (0.0-10.0); %Lymphocytes 17.7 % (21.0-51.0); %Neutrophils 67.9 % (42.0-75.0); Mean Corpuscular HGB CONC 33.3 g/dL (32.0-36.0); Mean Corpuscular Hemoglobin 32.7 pg (27.0-31.0); Mean Corpuscular Volume 98.1 fL (78.0-98.0); Mean Platelet Volume 9.6 fL (7.4-10.4); Platelet Count 116 thou/uL (130-400); RBC Distribution Width 15.9 % (11.5-14.5); Red Blood Cell (RBC) Count 2.44 mill/uL (4.70-6.10); White Blood Cell (WBC) Count 6.4 thou/uL (4.8-10.8)
[2021-01-04] MEDS ORDERED: Lorazepam 2 MG/ML VIAL SLOW IVP PRN (04:44)
[2021-01-04 04:58] LABS: ALT (SGPT) 36 U/L (8-55); AST (SGOT) 54 U/L (5-34); Alkaline Phosphatase 84 U/L (40-110); Anion Gap 14 mmol/L (10-20); BUN (Urea Nitrogen) 22 mg/dL (8.4-25.7); Bilirubin, Total 0.5 mg/dL (0.2-1.2); Calc. Creatinine Clearance 0 mL/min (70-130); Calcium 8.8 mg/dL (7.8-10.44); Carbon Dioxide 30 mmol/L (23-31); Chloride 102 mmol/L (98-107); Globulin 4.6 g/dL (2.4-3.5); Glucose 156 mg/dL (83-110); Potassium 3.8 mmol/L (3.5-5.1); Protein, Total 7.6 g/dL (5.8-8.1); Sodium 142 mmol/L (136-145)
[2021-01-04] MEDS ORDERED: Haloperidol Lactate 5 MG/ML VIAL ONE (05:09)
[2021-01-04 05:40] LABS: CKMB 12.5 ng/mL (0-6.6)
[2021-01-04] MEDS ORDERED: HumaLOG 300 UNITS/3 ML VIAL SC PRN ×2 (06:07)
[2021-01-04] MEDS ORDERED: Dextrose 50% Abboject 50 ML SYRINGE SLOW IVP PRN (06:07)
[2021-01-04] MEDS ORDERED: Dextrose 5% in Water 1,000 ML IV PRN (06:07)
[2021-01-04] MEDS ORDERED: Albuterol Sulfate 2.5 mg/3 ml Neb NEB PRN (06:23)
[2021-01-04 06:31] VITALS: BMI 34.2
[2021-01-04] MEDS: Ipratropium Bromide 2.5 ml Neb NEB SCH ×3 (07:08→17:53)
[2021-01-04] MEDS ORDERED: Calcium Carbonate 600 MG + Vit D TAB PO SCH (08:00)
[2021-01-04] MEDS: metFORMIN 500 MG TAB PO SCH ×2 (08:26→16:40)
[2021-01-04 08:27] VITALS: BP 115/59
[2021-01-04] MEDS ORDERED: Diltiazem HCl SR 60 mg Capsule PO SCH (09:00)
[2021-01-04] MEDS ORDERED: Apixaban 5 MG TAB PO SCH (09:00)
[2021-01-04] MEDS ORDERED: Allopurinol 100 MG TAB PO SCH (09:00)
[2021-01-04] MEDS ORDERED: Ferrous Sulfate 325 MG TAB PO SCH (09:00)
[2021-01-04] MEDS ORDERED: Potassium Chloride 10 MEQ TAB PO SCH (09:00)
[2021-01-04] MEDS ORDERED: Calcitriol 0.25 MCG CAP PO SCH (09:00)
[2021-01-04] MEDS ORDERED: Amlodipine 10 MG TAB PO SCH (09:00)
[2021-01-04] MEDS ORDERED: Polyethylene Glycol 3350 17 GM Packet PO PRN (09:23)
[2021-01-04] MEDS ORDERED: Haloperidol Lactate 5 MG/ML VIAL IM PRN (09:23)
[2021-01-04] MEDS ORDERED: Epoetin (ESRD) 20,000 UNITS/ML SC SCH (10:45)
[2021-01-04] MEDS ORDERED: EPOETIN ALFA-EPBX (ESRD) 4,000 UNIT/ML VIAL SC SCH (11:00)
[2021-01-04 19:24] VITALS: TEMP 98
[2021-01-04] MEDS ORDERED: risperiDONE 1 MG TAB PO SCH (20:00)
[2021-01-04] MEDS ORDERED: Atorvastatin Calcium 10 MG TAB PO SCH (21:00)
[2021-01-05] MEDS ORDERED: FLU VACC QS2021-22(65YR UP)/PF 240 MCG/0.7 ML SYRINGE IM ONE (06:45)
[2021-01-05] MEDS ORDERED: Thiamine 100 MG TAB PO SCH (09:00)
== END 2021-01-04 19:05 | DRG 57 ==
LOC: ERS 03:14 → ERHOLD 04:02 → IMCU/EMU 06:21
PROVIDERS: ADMIT Student in an Organized Health Care Education/Training Program; ATTEND Student in an Organized Health Care Education/Training Program
DX: G30.9 Alzheimer's disease, unspecified (principal); I50.32 Chronic diastolic (congestive) heart failure; I13.0 Hypertensive heart and chronic kidney disease with heart failure and stage 1 through stage 4 chronic kidney disease, or unspecified chronic kidney disease; F02.81 Dementia in other diseases classified elsewhere, unspecified severity, with behavioral disturbance; F05 Delirium due to known physiological condition; Z20.822 Contact with and (suspected) exposure to COVID-19; E78.5 Hyperlipidemia, unspecified; I48.91 Unspecified atrial fibrillation; N18.30 Chronic kidney disease, stage 3 unspecified; M10.9 Gout, unspecified; E11.22 Type 2 diabetes mellitus with diabetic chronic kidney disease; R45.1 Restlessness and agitation; R94.31 Abnormal electrocardiogram [ECG] [EKG]; Z87.891 Personal history of nicotine dependence; Z79.84 Long term (current) use of oral hypoglycemic drugs; Z79.01 Long term (current) use of anticoagulants; Z79.899 Other long term (current) drug therapy
CPT/HCPCS: 36415; 70450; 71045; 81003; 81015; 82553; 82805; 83880; 84443; 84484; 93005; 94640; 96374; J1630; J2060; Q5105

== ENCOUNTER 2021-04-25 20:45 | Emergency (ER) | payer MEDICARE, MEDICAID | END 2021-04-25 23:45 | disposition home or self-care (01) | LOC: ERS 20:45 | DX: Z43.1 Encounter for attention to gastrostomy (principal); I48.91 Unspecified atrial fibrillation; I10 Essential (primary) hypertension; E78.5 Hyperlipidemia, unspecified; J44.9 Chronic obstructive pulmonary disease, unspecified; Z87.891 Personal history of nicotine dependence; M10.9 Gout, unspecified; E11.9 Type 2 diabetes mellitus without complications | CPT/HCPCS: 74018 ==

== ENCOUNTER 2021-04-29 21:24 | Emergency (ER) | payer MEDICARE, MEDICAID ==
[~2021-04-29 21:24] MED LIST: GASTROGRAFIN 30 ML BOT ONE
== END 2021-04-29 23:19 | disposition home or self-care (01) ==
LOC: ERS 21:24
DX: K94.23 Gastrostomy malfunction (principal); J44.9 Chronic obstructive pulmonary disease, unspecified; E78.5 Hyperlipidemia, unspecified; I13.0 Hypertensive heart and chronic kidney disease with heart failure and stage 1 through stage 4 chronic kidney disease, or unspecified chronic kidney disease; N18.30 Chronic kidney disease, stage 3 unspecified; I50.9 Heart failure, unspecified; E11.9 Type 2 diabetes mellitus without complications; M10.9 Gout, unspecified; Z87.891 Personal history of nicotine dependence
CPT/HCPCS: 74018; Q9963